=== PATIENT | female | born 1965 | race Caucasian/White ===

== ENCOUNTER 2021-02-08 10:11 | Emergency (ER) | payer OTHER, SELFPAY ==
[2021-02-08 10:19] VITALS: BP 144/82; PULSE 98; RESP 18; TEMP 36.9; O2SAT 99
[2021-02-08 10:58] VITALS: BP 147/84; PULSE 96; RESP 16; O2SAT 96
--- NOTE | 2021-02-08 11:19 | ED.GENADULT ---
HPI - General Adult General Chief complaint: Upper Respiratory Infection Stated complaint: Sinus pressure, ears pain, cough Time Seen by Provider: 02/08/21 10:59 Source: patient and RN notes reviewed Mode of arrival: ambulatory Limitations: no limitations History of Present Illness HPI narrative: Patient is a 55-year-old female who presents with upper respiratory symptoms that began patient went to urgent care over the weekend was given antibiotic after having negative Covid test patient is already vaccinated against Covid patient notes that she started with congestion and ear fullness sinus pressure patient had one episode of emesis over the weekend notes that she now has nonproductive cough patient has been taking the antibiotic but no other medications for her symptoms patient on arrival is in no distress and does not appear uncomfortable Related Data Allergies Allergy/AdvReac Type Severity Reaction Status Date / Time No Known Drug Allergies Allergy Unknown Verified 10/29/16 08:19 Review of Systems Review of Systems: All systems reviewed & are unremarkable except as noted in HPI and below PMFSH Past Medical History Medical History (Updated 02/08/21 @ 11:29 by Anders Ernst PA-C) Diabetes mellitus Social History Social History (Updated 02/08/21 @ 11:27 by Anders Ernst PA-C) Smoking status: Never smoker Exam Narrative: Exam Narrative: GENERAL: Well-appearing, well-nourished, and in no acute distress. HEAD: Normocephalic, atraumatic. EYES: PERRLA and EOMI. ENT: Nares clear, no rhinorrhea or epistaxis. Mucous membranes moist. Oropharynx without tonsillar hypertrophy exudate or other lesions. Bilateral TMs pearly pereira nonbulging NECK: Supple. No adenopathy or masses. CHEST: Clear to auscultation. No respiratory distress. No wheezes rales or rhonchi HEART: Regular rate and rhythm. No murmur heard. EXTREMITIES: Normal range of motion. No edema. SKIN: Warm, dry, no rash. NEURO: No focal deficits. Alert and oriented x3. Cranial nerves II through XII grossly intact PSYCH: Normal mood and affect. Course Course Emergency Course: Patient in the room in no distress will be treated with medications for her symptoms advised to follow-up with primary care is afebrile nontoxic-appearing no distress felt appropriate for outpatient reevaluation. Patient felt appropriate for outpatient reevaluation as noted patient advised to continue her antibiotics. Patient provided with reasons to return Vital Signs Vital signs: Vital Signs Temperature 98.4 F 02/08/21 10:19 Pulse Rate 98 02/08/21 10:19 Respiratory Rate 18 02/08/21 10:19 Blood Pressure 144/82 H 02/08/21 10:19 Pulse Oximetry 99 02/08/21 10:19 Temperature 98.4 F 02/08/21 10:19 Pulse Rate 96 02/08/21 10:58 Respiratory Rate 16 02/08/21 10:58 Blood Pressure 147/84 H 02/08/21 10:58 Pulse Oximetry 96 02/08/21 10:58 Medical Decision Making MDM Narrative Medical decision making narrative: Patient with upper respiratory infection normal vital signs ABCs intact felt appropriate for outpatient reevaluation Vital Signs Vital Signs: Vital Signs Temperature 98.4 F 02/08/21 10:19 Pulse Rate 98 02/08/21 10:19 Respiratory Rate 18 02/08/21 10:19 Blood Pressure 144/82 H 02/08/21 10:19 Pulse Oximetry 99 02/08/21 10:19 Temperature 98.4 F 02/08/21 10:19 Pulse Rate 96 02/08/21 10:58 Respiratory Rate 16 02/08/21 10:58 Blood Pressure 147/84 H 02/08/21 10:58 Pulse Oximetry 96 02/08/21 10:58 Discharge Plan Discharge Clinical Impression: Upper respiratory infection Patient Disposition: Home, Self-Care Condition: Stable Instructions: Antibiotic Form, Upper Respiratory Infection (DC) Additional Instructions: Follow up with your primary care provider within 1-2 days. Go to ER for shortness of breath, difficulty breathing, chest pain, fever/chills, weakness, nauseau/vomitting, etc. or an
[2021-02-08 11:40] VITALS: BP 140/72; PULSE 92; RESP 20; O2SAT 98
== END 2021-02-08 11:37 | disposition home or self-care (01) ==
PROVIDERS: Emergency Provider Emergency Medicine; PCP Physician Assistant
DX: J06.9 Acute upper respiratory infection, unspecified (principal); E11.9 Type 2 diabetes mellitus without complications
CPT/HCPCS: 99283

== ENCOUNTER 2025-07-02 09:46 | Emergency (ER) | payer OTHER, SELFPAY ==
[2025-07-02] VITALS (8 sets, daily range): BP systolic 159–172; BP diastolic 83–88; PULSE 79–86; RESP 15–27; TEMP 36.5–36.8; O2SAT 96–99
--- NOTE | ~2025-07-02 | XR_ITS ---
Examination: XR chest 2V Clinical History: chest pain, WEIRD ARM FEELING Comparison: 10/29/2016 Technique: PA and Lateral Findings: Cardiomediastinal silhouette normal size and configuration. Lungs clear. Mediastinal calcifications. No acute bony abnormality. IMPRESSION: 1. No acute cardiopulmonary findings. Reviewed, dictated and finalized at location [facility]
--- NOTE | 2025-07-02 09:46 | ECG_ITS ---
Test Date: 2025-07-02 09:52:23 Measurements Intervals Lesage Rate: 91 P: 35 DE: 138 QRS: -21 QRSD: 81 T: 58 QT: 356 QTc: 439 Interpretive Statements SINUS RHYTHM POOR R-WAVE PROGRESSION, CONSIDER PREVIOUS ANTERIOR INFARCTION ABNORMAL ECG No previous ECG available for comparison Electronically Signed On 07-02-2025 13:21:33 APPEALS OFFICER by Timmy Daly M.D.
[2025-07-02 10:07] LABS: Hematocrit 37.6 % (37.0-47.0); Hemoglobin 12.6 g/dL (12.0-15.0); Immature Granulocyte Percent A 0.3 % (0-0.5); Lymphocytes Absolute Auto 2.65 K/mm3 (0.9-3.2); Mean Corpuscular HGB Conc 33.5 g/dl (32-36); Mean Corpuscular Hemoglobin 30.1 pg (26-34); Mean Corpuscular Volume 89.7 fl (80-100); Nucleated Red Blood Cells Absolute Auto 0.000 K/mm3 (0.0-0.012); Nucleated Red Blood Cells Perc 0.0 % (0.0-0.2); Platelet Count Result 176 k/mm3 (150-375); Red Blood Count 4.19 M/mm3 (4.2-5.4); White Blood Count 6.8 K/mm3 (4.5-10.0)
[2025-07-02 10:19] LABS: INR 1.2; Partial Thromboplastin Time 25.9 Seconds (22.3-36.8); Prothrombin Time 14.8 Seconds (11.1-14.7)
[2025-07-02 10:25] LABS: Alanine Aminotransferase 30 U/L (6-35); Albumin Level 4.3 g/dL (3.5-5.1); Alkaline Phosphatase 90 U/L (38-126); Anion Gap 10 mmol/L (4-12); Aspartate Amino Transferase 33 U/L (14-36); Bilirubin,Total 0.5 mg/dL (0.2-1.3); Blood Urea Nitrogen 12 mg/dL (7-17); Calcium 9.4 mg/dL (8.4-10.2); Carbon Dioxide 28 mmol/L (22-30); Chloride 101 mmol/L (98-107); Estimated CRCL calculation 93 ml/min; Estimated Glomerular Filt Rate > 60; Glucose 152 mg/dL (65-110); Lipase 177 U/L (23-300); Potassium 3.6 mmol/L (3.4-5.0); Sodium 139 mmol/L (137-145); Total Protein 8.0 g/dL (6.3-8.2)
[2025-07-02 10:35] LABS: Troponin I < 0.012 ng/mL (0.000-0.034)
--- OUTSIDE RECORDS SUMMARY | 2025-07-02 11:02 | XMS_ITS | Encounter Summary ---
Author Organization [facility] Facility Care Team Providers Care Coat Cutter Name Role Phone ADAM Newsome Jr., Robert James Primary Care Provide r Timmy Munoz MD Unavailable [phone] Mickie Merritt MD Unavailable Castillo Carrasquillo DO Primary Care Provider + ADAM Newsome Jr., Robert James Unavailable ADAM Newsome Jr., Robert James Primary Care Provide r Encounter Details Date Type Department Care Team (Latest Contact Info) Description 06/10/2017 Orders Only [facility] CLINCONV ProviderTanvi MD [address] [place] [address] Social History Tobacco Use Types Packs/Day Years Used Date Smoking Tobacco: Never Assessed Comments Unknown Sex and Gender Information Value Date Recorded Sex Assigned at Not on file 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 us Historical Provider Final Res ult documented in this encounter Visit Diagnoses Not on filedocumented in this encounter Care Teams Coat Cutter Relationship Specialty Start Date End Date Castillo Newsome Jr., PA [address] [place] [address] PCP - General Physician Historiography Professor 01/19/19 01/28/23 Castillo Carrasquillo DO [address] [place] [address] PCP - General Family Medicine 01/29/23 01/29/23 Castillo Newsome Jr., PA [address] [place] [address] PCP - General Family Medicine 01/30/23 Timmy Munoz MD [address] [address] Consulting Physician Orthopedic Surgery 12/26/21 Mickei Merritt MD [address] [address] Consulting Physician Obstetrics and Gynecology 03/24/22 03/25/22 Castillo Newsome Jr., PA [address] [place] [address] Physician Historiography Professor Family Medicine 01/29/23 02/12/23 documented as of this encounter
--- OUTSIDE RECORDS SUMMARY | 2025-07-02 11:02 | XMS_ITS | Encounter Summary ---
Author Organization [facility] Facility Care Team Providers Care Plate Grainer Name Role Phone ADAM Newsome Jr., Robert James Primary Care Provide r Timmy Munoz MD Unavailable [phone] Mickie Merritt MD Unavailable [phone] Castillo Carrasquillo DO Primary Care Provider + ADAM Newsome Jr., Robert James Unavailable ADAM Newsome Jr., Robert James Primary Care Provide r Encounter Details Date Type Department Care Team (Latest Contact Info) Description 01/13/2016 Orders Only [facility] CLINCONV ProviderTanvi MD [address] [place] [address] Social History Tobacco Use Types Packs/Day Years Used Date Smoking Tobacco: Never Assessed Comments Unknown Sex and Gender Information Value Date Recorded Sex Assigned at Not on file 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 us Historical Provider Final Res ult documented in this encounter Visit Diagnoses Not on filedocumented in this encounter Care Teams Plate Grainer Relationship Specialty Start Date End Date Castillo Newsome Jr., PA [address] [place] [address] PCP - General Physician Meteorological Engineer 01/19/19 01/28/23 Castillo Carrasquillo DO [address] [place] [address] PCP - General Family Medicine 01/29/23 01/29/23 Castillo Newsome Jr., PA [address] [place] [address] PCP - General Family Medicine 01/30/23 Timmy Munoz MD [address] [address] Consulting Physician Orthopedic Surgery 12/26/21 Mickie Merritt MD [address] [address] Consulting Physician Obstetrics and Gynecology 03/24/22 03/25/22 Castillo Newsome Jr., PA [address] [place] [address] Physician Meteorological Engineer Family Medicine 01/29/23 02/12/23 documented as of this encounter
--- OUTSIDE RECORDS SUMMARY | 2025-07-02 11:02 | XMS_ITS | Encounter Summary ---
Author Organization [facility] Facility Care Team Providers Care Movie Projectionist Name Role Phone ADAM Newsome Jr., Robert James Primary Care Provide r Timmy Munoz MD Unavailable [phone] Mickie Merritt MD Unavailable Castillo Carrasquillo DO Primary Care Provider + ADAM Newsome Jr., Robert James Unavailable ADAM Newsome Jr., Robert James Primary Care Provide r Encounter Details Date Type Department Care Team (Latest Contact Info) Description 12/12/2015 Orders Only [facility] CLINCONV ProviderTanvi MD [address] [place] [address] Social History Tobacco Use Types Packs/Day Years Used Date Smoking Tobacco: Never Assessed Comments Unknown Sex and Gender Information Value Date Recorded Sex Assigned at Not on file Legal Sex Female 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 Gender Identity Female 02/12/2019 8:13 PM CDT [...] on filedocumented in this encounter Care Teams Movie Projectionist Relationship Specialty Start Date End Date Castillo Newsome Jr., PA [address] [place] [address] PCP - General Physician Icd 9 Coder 01/19/19 01/28/23 Castillo Carrasquillo DO [address] [place] [address] PCP - General Family Medicine 01/29/23 01/29/23 Castillo Newsome Jr., PA [address] [place] [address] PCP - General Family Medicine 01/30/23 Timmy Munoz MD [address] [address] Consulting Physician Orthopedic Surgery 12/26/21 Mickie Merritt MD [address] [address] Consulting Physician Obstetrics and Gynecology 03/24/22 03/25/22 Castillo Newsome Jr., PA [address] [place] [address] Physician Icd 9 Coder Family Medicine 01/29/23 02/12/23 documented as of this encounter
--- OUTSIDE RECORDS SUMMARY | 2025-07-02 11:02 | XMS_ITS | Patient Health Record ---
Author Organization [employer] [facility] [address] ([address]) Address [address] [place] [address] Care Team Providers Care Telephone Maintainer Name Role Phone Castillo Newsome PA-C Primary Care Provider Unavail able Radha Ernst Unavailable [phone] Vin Baugh MD Unavailable Unavailable Allergies No Known Allergies Reason For Referral No Information Medications Medication SIG (Take, Route, Frequency, Duration) Notes Start Date End Date Status CENTRUM SILVER WOMEN'S THERAPEUTIC MULTIPLE VITAMINS WITH MINERALS 1 TAB(S) ORALLY ONCE A DAY *Please review for potential replacement for e-prescription and drug interaction check* Active DULOXETINE 60 mg 1 cap(s) orally once a day Not-Taking VITAMIN B-100 COMPLEX TIMED RELEASE VITAMIN B COMPLEX 1 TAB(S) ORALLY ONCE A DAY *Please review for potential replacement for e-prescription and drug interaction check* Active GEMFIBROZIL 600 mg 1 tab(s) orally 2 times a day Not-Taking DULoxetine HCl 60 MG 1 cap(s) orally once a day Active TRIAMCINOLONE ACETONIDE NASAL 55 mcg/inh 2 spray(s) intranasally once a day; Duration: 90 days Not-Taking SIT (TRADITIONAL) VARIABLE PER SCHEDULE SC PER SCHEDULE *Please review for potential replacement for e-prescription and drug interaction check* Not-Taking CENTRUM MINIS ADULTS 50+ Therapeutic Multiple Vitamins with Minerals as directed orally once a day Not-Taking OPTICHAMBER PELON SPACER USE DIRECTED; Duration: 30 DAY(S) *Please review for potential replacement for e-prescription and drug interaction check* 2 Active AEROCHAMBER MDI SPACER - MOUTHPIECE (ADULT) N/A DIRECTED PO PER ASTHMA ACTION PLAN; Duration: 30 DAY(S) *Please review for potential replacement for e-prescription and drug interaction check* Active SYNTHROID 100 mcg (0.1 mg) 1 tab(s) orally once a day Not-Taking DIVALPROEX SODIUM 500 mg 1 tab(s) orally 3 times a day Not-Taking Gemfibrozil 600 MG 1 tab(s) orally 2 times a day Active METFORMIN 850 mg 1 tab(s) orally once a day (in the morning) Not-Taking Ezetimibe 10 MG 1 tab(s) orally once a day Active HYDROCHLOROTHIAZIDE 25 mg 1 tab(s) orally once a day Not-Taking Dulera 100-5 MCG/ACT 2 puff(s) inhaled 2 times a day; Duration: 90 days needs appointment Active EpiPen 2-Jarvis 0.3 MG/0.3ML as directed intramuscularly once; Duration: 30 days Active EZETIMIBE 10 mg 1 tab(s) orally once a day Not-Taking Cetirizine HCl 10 MG 1 tab(s) orally once a day Active POTASSIUM CHLORIDE 20 mEq 1 tab(s) orally 2 times a day Not-Taking AEROCHAMBER MDI SPACER - MOUTHPIECE (ADULT) N/A as directed PO Per asthma action plan; Duration: 30 days Active LANSOPRAZOLE 30 mg 1 cap(s) orally once a day Active Divalproex Sodium 500 MG 1 tab(s) orally 3 times a day Active Vitamin D3 125 MCG (5000 UT) 1 cap(s) orally once a day Active EPIPEN 2-JARVIS 0.3 mg as directed intramuscularly once; Duration: 30 days Active hydroCHLOROthiazide 25 MG 1 tab(s) orally once a day Not-Taking GLUCOSAMINE CHONDROITIN 20 MG-400 MG-500 MG-2 MG 3 CAP(S) ORALLY ONCE A DAY *Please review for potential replacement for e-prescription and drug interaction check* Active Levalbuterol Tartrate 45 MCG/ACT 2 puffs as needed Inhalation every 6 hrs; Duration: 90 days As needed Active Synthroid 100 MCG 1 tab(s) orally once a day Active CETIRIZINE HYDROCHLORIDE 10 mg 1 tab(s) orally once a day Active Lansoprazole 30 MG 1 cap(s) orally once a day Active Triamcinolone Acetonide 55 MCG/ACT 2 spray(s) intranasally once a day; Duration: 90 days Not-Taking NASAL WASHES N/A as directed intranasally as needed; Duration: 30 Active metFORMIN HCl 850 MG 1 tab(s) orally once a day (in the morning) Active VITAMIN D3 5000 intl units 1 cap(s) orally once a day Not-Taking Centrum Minis Adults 50+ THERAPEUTIC MULTIPLE VITAMINS WITH MINERALS DIRECTED ORALLY ONCE A DAY *Please review and pick correct strength-formul ation from [employer] options. If intended option is not shown, discontinue and re-order from Quick Search* Not-Taking PROAIR HFA 90 mcg/inh 2 puff(s) inhaled 4 times a day; Duration: 30 days Active Potassium Chloride ER 20 MEQ 1 tab(s) orally 2 times a day Not-Taking Trelegy Ellipta 200-62.5-25 MCG/ACT 1 puff Inhalation Once a day; Duration: 30 days Not-Taking DULERA 5 mcg-100 mcg/inh 2 puff(s) inhal ed 2 times a day; Duration: 90 days Not-Taking Immunizations Vaccine Route Administration Date Status Comme nts Hepatitis A Unknown 05/08/2000 Administered Portal Info rmation NOC Tdap Unknown 05/11/1992 Administered Portal Infor mation Influenza Unknown 06/07/2018 Administered Portal Infor mation Flucelvax Unknown 06/19/2019 Administered NOC Flucelevax Quadrivalent Unknown 06/08/2020 Administered Covid 19 (Pfizer) Unknown 08/05/2020 Administered Covid 19 (Pfizer) Unknown 08/26/2020 Administered Social History Tobacco Use: Social History Observation Description Date Details (start date - stop date) Never Smoker NA - NA Sex Assigned At : Social History Observation Description Sex Assigned At Female Tobacco Control (Standard) Question Answer Notes Tobacco use: Nonsmoker Problems Problem Type SNOMED Code ICD Code Onset Dates Problem Status W/U Status Risk Notes Problem Chronic allergic conjunctivitis (73379209) Other chronic allergic conjunctivitis (H10.45) Active confirmed Problem Acute upper respiratory infection (19533637) Acute upper respiratory infection, unspecified (J06.9) Active confirmed Problem Allergic rhinitis caused by pollen (disorder) (95366719) Allergic rhinitis due to pollen (J30.1) Active confirmed Problem Allergic rhinitis caused by animal hair and dander (801215797941727) Allergic rhinitis due to animal (cat) (dog) hair and dander (J30.81) Active confirmed Problem Allergic rhinitis (21791093) Other allergic rhinitis (J30.89) Active confirmed Problem Cough (13934709) Cough (R05) Active confirmed Problem Eruption of skin (258341874) Rash and other nonspecific skin eruption (R21) Active confirmed Problem Dermatographic urticaria (3646257) Dermatographic urticaria (L50.3) Active confirmed Problem Gastro-esophageal reflux disease without esophagitis (903464088) Gastro-esophageal reflux disease without esophagitis (K21.9) Active confirmed Problem Chronic cough (72641480) Chronic cough (R05.3) Active confirmed Vital Signs Oximetry 99 % 11/12/2024 Blood pressure diastolic 87 mm Hg 11/12/2024 Height 67 in 11/12/2024 Blood pressure systolic 156 mm Hg 11/12/2024 Weight 213.2 lbs 11/12/2024 BMI 33.39 kg/m2 11/12/2024 Encounters Encounter Location Date Provider Diagnosis [facility] [address] [place] [address] 11/12/2024 Radha Ernst Cough R05 ; Allergic rhinitis due to pollen J30.1 ; Allergic rhinitis due to animal (cat) (dog) hair and dander J30.81 ; Other allergic rhinitis J30.89 ; Gastro-esophageal reflux disease without esophagitis K21.9 ; Dermatographic urticaria L50.3 and Elevated blood-pressure reading, without diagnosis of hypertension R03.[address] [address] 05/18/2025 Radha Ernst Assessments Encounter Date Diagnosis (ICD Code) Assessment Notes Treatment Notes Treatment Clinical Notes Section Notes 11/12/2024 Allergic rhinitis due to pollen (ICD-10 - J30.1) Kimberly clearly suffers from atopic disease based upon our previous skin testing. She continues her aggressive medication regimen, nasal washes and allergy-specific avoidance measures and SCIT. Currently on MM q 4 weeks, was not due for dosing today. AIE on hand for dosing today. Given she has been on MM for 3 years without symptoms, will plan on trial off SCIT. I would have liked her to titrate meds before we stopped. - Off SCIT since 06/2023 and had been doing well until URI as stated above. 11/12/2024 Cough (ICD-10 - R05) Kimberly has a history of presumed asthma with historical seasonal cough each Fall. She was previously stepped down to QVAR which lead to increase in symptoms. Given she has moderate-persisten t symptoms, she was stepped-up to ICS/LABA again in 10/2019. Previously had been taking Dulera BID since that time with complete control of symptoms with MICHELLE use less than once per month. She is now on medium dose Dulera QD. Recommend stepping up to BID for future flares 11/12/2024 Allergic rhinitis due to animal (cat) (dog) hair and dander (ICD-10 - J30.81) Follow allergen avoidance, meds 11/12/2024 Other allergic rhinitis (ICD-10 - J30.89) Follow allergen avoidance, meds 11/12/2024 Gastro-esophageal reflux disease without esophagitis (ICD-10 - K21.9) Continue PPI, consider GI input. May be contributing to chronic cough. No recent symptoms so continue current regimen 11/12/2024 Dermatographic urticaria (ICD-10 - L50.3) Continue antihistamines and consider additional meds/work-up if not controlled. No interval symptoms 11/12/2024 Elevated blood-pressure reading, without diagnosis of hypertension (ICD-10 - R03.0) BP elevated today without symptoms of urgency or emergency. Continue serial checks and follow-up with PCP 11/12/2024 Other Plan Of Treatment No Information Insurance Providers Payer Name Payer Address Payer Phone Subscriber Number Group Number Insured Name Patient Relationship to Insured Coverage Start Date Coverage End Date [facility] [address] [address] [place], [place] [id number] [phone] [id number] Ezequiel Butler Spouse - patient is the spouse of the insured Medical (General) History Medical History History ICD Code Osteoarthritis Cough Vitamin D deficiency, unspecified Hypothyroidism, unspecified Essential (primary) hypertension Type 2 diabetes mellitus without complic ations Hyperlipidemia, unspecified Rash and other nonspecific skin eruption Other conjunctivitis Other seizures Gastro-esophageal reflux disease without esophagitis Other allergic rhinitis Surgical History Surgery Date(Month/Year) Appendectomy 12/17/1973 Nose Surgery 07/06/1982 01/22/1989 12/09/1989 Bi-lateral Plantar Fasciatis 04/19/2008 Uterine Ablation 05/19/2005 Tubes in Ears 05/19/2010 Removal of benign lump in L Breast 07/19
--- OUTSIDE RECORDS SUMMARY | 2025-07-02 11:02 | XMS_ITS | Encounter Summary ---
Author Organization [facility] Facility Care Team Providers Care Educational Guidance Counselor Name Role Phone ADAM Newsome Jr., Robert James Primary Care Provide r Timmy Munoz MD Unavailable [phone] Mickie Merritt MD Unavailable Castillo Carrasquillo DO Primary Care Provider + ADAM Newsome Jr., Robert James Unavailable ADAM Newsome Jr., Robert James Primary Care Provide r Encounter Details Date Type Department Care Team (Latest Contact Info) Description 06/20/2017 Orders Only [facility] CLINCONV ProviderTanvi MD [address] [place] [address] Social History Tobacco Use Types Packs/Day Years Used Date Smoking Tobacco: Never Assessed Comments Unknown Sex and Gender Information Value Date Recorded Sex Assigned at Not on file 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 us Historical Provider Final Res ult documented in this encounter Visit Diagnoses Not on filedocumented in this encounter Care Teams Educational Guidance Counselor Relationship Specialty Start Date End Date Castillo Newsome Jr., PA [address] [place] [address] PCP - General Physician Wick Tender 01/19/19 01/28/23 Castillo Carrasquillo DO [address] [place] [address] PCP - General Family Medicine 01/29/23 01/29/23 Castillo Newsome Jr., PA [address] [place] [address] PCP - General Family Medicine 01/30/23 Timmy Munoz MD [address] [address] Consulting Physician Orthopedic Surgery 12/26/21 Mickie Merritt MD [address] [address] Consulting Physician Obstetrics and Gynecology 03/24/22 03/25/22 Castillo Newsome Jr., PA [address] [place] [address] Physician Wick Tender Family Medicine 01/29/23 02/12/23 documented as of this encounter
--- OUTSIDE RECORDS SUMMARY | 2025-07-02 11:02 | XMS_ITS | Encounter Summary ---
Author Organization [facility] Facility Care Team Providers Care Cyber Threat Analyst Name Role Phone ADAM Newsome Jr., Robert James Primary Care Provide r Timmy Munoz MD Unavailable Mickie Merritt MD Unavailable Castillo Carrasquillo DO Primary Care Provider + ADAM Newsome Jr., Robert James Unavailable ADAM Newsome Jr., Robert James Primary Care Provide r Encounter Details Date Type Department Care Team (Latest Contact Info) Description 01/02/2016 Orders Only [facility] CLINCONV ProviderTanvi MD [address] [place] [address] Social History Tobacco Use Types Packs/Day Years Used Date Smoking Tobacco: Never Assessed Comments Unknown Sex and Gender Information Value Date Recorded Sex Assigned at Not on file Legal Sex Female 7:31 AM 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 us Historical Provider NURSING COMMUNICATION Fin al Result documented in this encounter Visit Diagnoses Not on filedocumented in this encounter Care Teams Cyber Threat Analyst Relationship Specialty Start Date End Date Castillo Newsome Jr., PA [address] [place] [address] PCP - General Physician Office Worker 01/19/19 01/28/23 Castillo Carrasquillo DO [address] [place] [address] PCP - General Family Medicine 01/29/23 01/29/23 Castillo Newsome Jr., PA [address] [place] [address] PCP - General Family Medicine 01/30/23 Timmy Munoz MD [address] [address] Consulting Physician Orthopedic Surgery 12/26/21 Mickie Merritt MD [address] [address] Consulting Physician Obstetrics and Gynecology 03/24/22 03/25/22 Castillo Newsome Jr. PA [address] [place] [address] Physician Office Worker Family Medicine 01/29/23 02/12/23 documented as of this encounter
--- OUTSIDE RECORDS SUMMARY | 2025-07-02 11:03 | XMS_ITS | Encounter Summary ---
Author Organization [facility] Facility Care Team Providers Care Driller Operator Name Role Phone ADAM Newsome Jr., Robert James Primary Care Provide r Timmy Munoz MD Unavailable [phone] Mickie Merritt MD Unavailable Castillo Carrasquillo DO Primary Care Provider + ADAM Newsome Jr., Robert James Unavailable ADAM Newsome Jr., Robert James Primary Care Provide r Encounter Details Date Type Department Care Team (Latest Contact Info) Description 10/29/2016 Orders Only [facility] CLINCONV ProviderTanvi MD [address] [place] [address] Social History Tobacco Use Types Packs/Day Years Used Date Smoking Tobacco: Never Assessed Comments Unknown Sex and Gender Information Value Date Recorded Sex Assigned at Not on file Legal Sex Female 7:31 AM IMPROVEMENT NURSE Gender Identity Female 02/12/2019 8:13 PM CDT Sexual Orientation Straight 02/12/2019 8: 13 PM CDT documented as of this encounter Plan of Treatment Not on file documented as of this encounter Procedures Procedure Name Priority Date/Time Associated Diagnosis Comments SCAN - LABS 06/10/2017 12:00 AM CDT CARDIOLOGY REPORT 06/10/2017 12: 00 AM CDT documented in this encounter Results * SCAN - LABS (06/10/2017 12:00 AM CDT) Narrative 06/10/2017 12:00 AM CDT Ordered by an unspecified provider. us Historical Provider Final Res ult * CARDIOLOGY REPORT (06/10/2017 12:00 AM CDT) Anatomical Region Laterality Modality Other Narrative 06/10/2017 12:00 AM CDT Ordered by an unspecified provider. us Historical Provider CV CARDIAC SERVICES PROCE ANUP Final Result documented in this encounter Visit Diagnoses Not on filedocumented in this encounter Care Teams Driller Operator Relationship Specialty Start Date End Date Castillo Newsome Jr., PA [address] [place] [address] PCP - General Physician Ethylene Plant Operator 01/19/19 01/28/23 Castillo Carrasquillo DO [address] [place] [address] PCP - General Family Medicine 01/29/23 01/29/23 Castillo Newsome Jr., PA [address] [place] [address] PCP - General Family Medicine 01/30/23 Timmy Munoz MD [address] [facility] [address] [address] Consulting Physician Orthopedic Surgery 12/26/21 Mickie Merritt MD [address] [facility] [address] [place] [address] Consulting Physician Obstetrics and Gynecology 03/24/22 03/25/22 Castillo Newsome Jr., PA [address] [place] [address] Physician Ethylene Plant Operator Family Medicine 01/29/23 02/12/23 documented as of this encounter
--- OUTSIDE RECORDS SUMMARY | 2025-07-02 11:03 | XMS_ITS | Encounter Summary ---
Author Organization [facility] Healthcare Address [address] [place] [address] Care Team Providers Care Textile Bag Sewer Name Role Phone Timmy Munoz MD Unavailable [phone] ADAM Newsome Jr., Castillo Suggs Primary Care Provide r Encounter Details Date Type Department Care Team (Late st Contact Info) Description 06/25/2025 Results Follow-Up [facility] Medical [facility] Primary Care [address] [phone] Castillo Newsome Jr., PA [address] [place] [address] Iron profile w/ IBC Social History Tobacco Use Types Packs/Day Years Used Date Smoking Tobacco: Never Smokeless Tobacco: Never Alcohol Use Standard Drinks/Week Comments Yes 0 (1 standard drink = 0.6 oz pur e alcohol) Rarely Humiliation, Afraid, Rape, and Kick questionnair e Answer Date Recorded Within the last year, have y ou been afraid of your partner or ex-partner? No 10/16/2022 Within the last year, have y ou been humiliated or emotionally abused in other ways by your partner or ex-partner? No Within the last year, have y ou been kicked, hit, slapped, or otherwise physically hurt by your partner or ex-partner? No 10/16/2022 Within the last year, have y ou been raped or forced to have any kind of sexual activity by your partner or ex-partner? No 10/16/2022 Social Connection and Isolation Panel Answer Date Recorded In a typical week, how many times do you talk on the phone with family, friends, or neighbors? Twice a week 10/16/19 How often do you get togethe r with friends or relatives? Twice a week 10/16/2022 How often do you attend chur ch or confucianism services? 1 to 4 times per year 10/16/2022 Do you belong to any clubs o r organizations such as advent groups, unions, fraternal or athletic groups, or school groups? Yes 10/16/2022 How often do you attend meet ings of the clubs or organizations you belong to? 1 to 4 times per year 10/16/2022 Are you , , di vorced, , never , or living with a partner? 10/16/2022 Overall Financial Resource Strain (CARDIA) Answe r Date Recorded How hard is it for you to pa y for the very basics like food, housing, medical care, and heating? Not hard at all 10/16/2022 PHQ-2 Answer Date Recorded PHQ-2 Total Score (If total score is 3 or more points, staff should administer the PHQ-9) 0 02/11/2025 [facility] - Occupational Stress Questionnaire Answer Date Recorded Do you feel stress - tense, restless, nervous, or anxious, or unable to sleep at night because your mind is troubled all the time - these days? Only a little 10/16/2022 Exercise Vital Sign Answer Date Recorde d On average, how many days pe r week do you engage in moderate to strenuous exercise (like a brisk walk)? 2 days 10/16/2022 On average, how many minutes do you engage in exercise at this level? 20 min 10/16/2022 Hunger Vital Sign Answer Date Recorded Within the past 12 months, y ou worried that your food would run out before you got the money to buy more. Never true 06/20/20 23 Within the past 12 months, t he food you bought just didn't last and you didn't have money to get more. Never true 06/20/2023 [facility] - Transportation Answer Date Re corded In the past 12 months, has l ack of transportation kept you from medical appointments or from getting medications? No 09/20 In the past 12 months, has l ack of transportation kept you from meetings, work, or from getting things needed for daily living? No 10/16/2022 Housing Stability Vital Sign Answer Vince e Recorded In the last 12 months, was t here a time when you were not able to pay the mortgage or rent on time? No 10/16/2022 Number of Places Lived in the Last Year Not on f ile 10/16/2022 In the last 12 months, was t here a time when you did not have a steady place to sleep or slept in a senior care (including now)? No 10/16/2022 PHQ-9 Answer Date Recorded PHQ-9 Total Score 0 10/20/2024 AUDIT-C Answer Date Recorded Q1: How often do you have a drink containing alc ohol? Never 06/01/2025 Average Number of Drinks Not on file 025 Frequency of Binge Drinking Not on file 05/19 Personal Safety Answer Date Recorded Have you ever been in or are you currently in a harmful physical or emotional relationship or is someone making you feel afraid or unsafe? Denies 04/09/2025 Education Answer Date Recorded What is the highest level of school you have completed or the highest degree you have received? 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 Author CCM Chronic Pain Care Plan Chronic Care Management No Susi Covington, LACE PINNER Note: Problem: Chronic Pain Goals: 1. Minimize further functional decline 2. Maximize quality of life 3. Control pain Strategies: - Activity/exercise program recommendation - Conservative stepwise pain medicine strategy with multi-disciplinary approach - Recommend healthy lifestyle strategies and compensatory methods as needed documented as of this encounter Visit Diagnoses Not on filedocumented in this encounter Care Teams Textile Bag Sewer Relationship Specialty Start Date End Date Castillo Newsome Jr., PA [address] [place] [address] PCP - General Family Medicine 01/30/23 Timmy Munoz MD [address] [address] Consulting Physician Orthopedic Surgery 12/26/21 documented as of this encounter
--- OUTSIDE RECORDS SUMMARY | 2025-07-02 11:03 | XMS_ITS | Encounter Summary ---
Author Organization [facility] Healthcare Address [address] [place] [address] Care Team Providers Care Assistant Hall Director Name Role Phone ADAM Newsome Jr., Castillo Suggs Primary Care Provide r Timmy Munoz MD Unavailable Mickie Merritt MD Unavailable Castillo Carrasquillo DO Primary Care Provider + ADAM Newsome Jr., Robert James Unavailable ADAM Newsome Jr., Robert James Primary Care Provide r Encounter Details Date Type Department Care Team (Late st Contact Info) Description 12/15/2021 Telephone [facility] Radiology [address] [place] [address] Estevan Reyes MD PhD [address] [place] [address] Social History Tobacco Use Types Packs/Day Years Used Date Smoking Tobacco: Never Smokeless Tobacco: Never Alcohol Use Standard Drinks/Week Comments Yes 0 (1 standard drink = 0.6 oz pur e alcohol) Rarely Humiliation, Afraid, Rape, and Kick questionnair e Answer Date Recorded Within the last year, have y ou been afraid of your partner or ex-partner? No 11/25/2020 Within the last year, have y ou been humiliated or emotionally abused in other ways by your partner or ex-partner? No Within the last year, have y ou been kicked, hit, slapped, or otherwise physically hurt by your partner or ex-partner? No 11/25/2020 Within the last year, have y ou been raped or forced to have any kind of sexual activity by your partner or ex-partner? No 11/25/2020 AUDIT-C Answer Date Recorded Q1: How often do you have a drink containing alc ohol? Monthly or less 10/09/2021 Q2: How many drinks containi ng alcohol do you have on a typical day when you are drinking? 1 or 2 10/09/2021 Q3: How often do you have si x or more drinks on one occasion? 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 documented as of this encounter Plan of Treatment Not on file documented as of this encounter Visit Diagnoses Not on filedocumented in this encounter Care Teams Assistant Hall Director Relationship Specialty Start Date End Date [place] [address] [address] PCP - General Physician Metal Reclamation Kettle Tender 01/19/19 01/28/23 [place] [address] [place] [address] PCP - General Family Medicine 01/29/23 01/29/23 Castillo Newsome Jr., PA [address] [place] [address] PCP - General Family Medicine 01/30/23 Timmy Munoz MD [address] [address] Consulting Physician Orthopedic Surgery 12/26/21 Mickie Merritt MD [address] [address] Consulting Physician Obstetrics and Gynecology 03/24/22 03/25/22 Castillo Newsome Jr., PA [address] [place] [address] Physician Metal Reclamation Kettle Tender Family Medicine 01/29/23 02/12/23 documented as of this encounter
--- OUTSIDE RECORDS SUMMARY | 2025-07-02 11:03 | XMS_ITS | Encounter Summary ---
Author Organization [facility] Facility Care Team Providers Care Golf Technician Name Role Phone ADAM Newsome Jr., Robert James Primary Care Provide r Timmy Munoz MD Unavailable [phone] Mickie Merritt MD Unavailable Castillo Carrasquillo DO Primary Care Provider + ADAM Newsome Jr., Robert James Unavailable ADAM Newsome Jr., Robert James Primary Care Provide r Encounter Details Date Type Department Care Team (Latest Contact Info) Description 10/16/2016 Orders Only [facility] CLINCONV ProviderTanvi MD [address] [place] [address] Social History Tobacco Use Types Packs/Day Years Used Date Smoking Tobacco: Never Assessed Comments Unknown Sex and Gender Information Value Date Recorded Sex Assigned at Not on file Legal Sex Female 7:31 AM PROMOTIONS OFFICER Gender Identity Female 02/12/2019 8:13 PM CDT Sexual Orientation Straight 02/12/2019 8: 13 PM CDT documented as of this encounter Plan of Treatment Not on file documented as of this encounter Procedures Procedure Name Priority Date/Time Associated Diagnosis Comments SCAN - LABS 10/16/2016 12:00 AM PROMOTIONS OFFICER documented in this encounter Results * SCAN - LABS (10/16/2016 12:00 AM PROMOTIONS OFFICER) Narrative 10/16/2016 12:00 AM PROMOTIONS OFFICER Ordered by an unspecified provider. us Historical Provider Final Res ult documented in this encounter Visit Diagnoses Not on filedocumented in this encounter Care Teams Golf Technician Relationship Specialty Start Date End Date Castillo Newsome Jr., PA [address] [place] [address] PCP - General Physician Resaw Carriage Operator 01/19/19 01/28/23 Castillo Carrasquillo DO [address] [place] [address] PCP - General Family Medicine 01/29/23 01/29/23 Castillo Newsome Jr., PA [address] [place] [address] PCP - General Family Medicine 01/30/23 Timmy Munoz MD [address] [address] Consulting Physician Orthopedic Surgery 12/26/21 Mickie Merritt MD [address] [address] Consulting Physician Obstetrics and Gynecology 03/24/22 03/25/22 Castillo Newsome Jr., PA [address] [place] [address] Physician Resaw Carriage Operator Family Medicine 01/29/23 02/12/23 documented as of this encounter
--- OUTSIDE RECORDS SUMMARY | 2025-07-02 11:03 | XMS_ITS | Encounter Summary ---
Author Organization [facility] Facility Care Team Providers Care Spike Machine Operator Name Role Phone ADAM Newsome Jr., Robert James Primary Care Provide r Timmy Munoz MD Unavailable [phone] Mickie Merritt MD Unavailable Castillo Carrasquillo DO Primary Care Provider + ADAM Newsome Jr., Robert James Unavailable ADAM Newsome Jr., Robert James Primary Care Provide r Encounter Details Date Type Department Care Team (Latest Contact Info) Description 02/28/2016 Orders Only [facility] CLINCONV ProviderTanvi MD [address] [place] [address] Social History Tobacco Use Types Packs/Day Years Used Date Smoking Tobacco: Never Assessed Comments Unknown Sex and Gender Information Value Date Recorded Sex Assigned at Not on file Legal Sex Female 7:31 AM DRAY DRIVER Gender Identity Female 02/12/2019 8:13 PM CDT Sexual Orientation Straight 02/12/2019 8: 13 PM CDT documented as of this encounter Plan of Treatment Not on file documented as of this encounter Procedures Procedure Name Priority Date/Time Associated Diagnosis Comments SCAN - LABS 02/28/2016 12:00 AM CDT documented in this encounter Results * SCAN - LABS (02/28/2016 12:00 AM CDT) Narrative 02/28/2016 12:00 AM CDT Ordered by an unspecified provider. us Historical Provider Final Res ult documented in this encounter Visit Diagnoses Not on filedocumented in this encounter Care Teams Spike Machine Operator Relationship Specialty Start Date End Date Castillo Newsome Jr., PA [address] [place] [address] PCP - General Physician Magisterial District Judge 01/19/19 01/28/23 Castillo Carrasquillo DO [address] [place] [address] PCP - General Family Medicine 01/29/23 01/29/23 Castillo Newsome Jr., PA [address] [place] [address] PCP - General Family Medicine 01/30/23 Timmy Munoz MD [address] [address] Consulting Physician Orthopedic Surgery 12/26/21 Mickie Merritt MD [address] [address] Consulting Physician Obstetrics and Gynecology 03/24/22 03/25/22 Castillo Newsome Jr., PA [address] [place] [address] Physician Magisterial District Judge Family Medicine 01/29/23 02/12/23 documented as of this encounter
--- OUTSIDE RECORDS SUMMARY | 2025-07-02 11:03 | XMS_ITS | Encounter Summary ---
Author Organization [facility] Facility Care Team Providers Care Application Administrator Name Role Phone ADAM Newsome Jr., Robert James Primary Care Provide r Timmy Munoz MD Unavailable [phone] Mickie Merritt MD Unavailable Castillo Carrasquillo DO Primary Care Provider + ADAM Newsome Jr., Robert James Unavailable [phone] ADAM Newsome Jr., Robert James Primary Care Provide r Encounter Details Date Type Department Care Team (Latest Contact Info) Description 10/15/2016 Orders Only [facility] CLINCONV ProviderTanvi MD [address] [place] [address] Social History Tobacco Use Types Packs/Day Years Used Date Smoking Tobacco: Never Assessed Comments Unknown Sex and Gender Information Value Date Recorded Sex Assigned at Not on file Legal Sex Female 7:31 AM RADIO MAINTAINER Gender Identity Female 02/12/2019 8:13 PM CDT Sexual Orientation Straight 02/12/2019 8: 13 PM CDT documented as of this encounter Plan of Treatment Not on file documented as of this encounter Procedures Procedure Name Priority Date/Time Associated Diagnosis Comments SCAN - LABS 10/18/2016 12:00 AM RADIO MAINTAINER documented in this encounter Results * SCAN - LABS (10/18/2016 12:00 AM RADIO MAINTAINER) Narrative 10/18/2016 12:00 AM RADIO MAINTAINER Ordered by an unspecified provider. us Historical Provider Final Res ult documented in this encounter Visit Diagnoses Not on filedocumented in this encounter Care Teams Application Administrator Relationship Specialty Start Date End Date Castillo Newsome Jr., PA [address] [place] [address] PCP - General Physician Director Of Accounts Payable 01/19/19 01/28/23 Castillo Carrasquillo DO [address] [place] [address] PCP - General Family Medicine 01/29/23 01/29/23 Castillo Newsome Jr., PA [address] [place] [address] PCP - General Family Medicine 01/30/23 Timmy Munoz MD [address] [address] Consulting Physician Orthopedic Surgery 12/26/21 Mickie Merritt MD [address] [address] Consulting Physician Obstetrics and Gynecology 03/24/22 03/25/22 Castillo Newsome Jr., PA [address] [place] [address] Physician Director Of Accounts Payable Family Medicine 01/29/23 02/12/23 documented as of this encounter
--- OUTSIDE RECORDS SUMMARY | 2025-07-02 11:03 | XMS_ITS | Encounter Summary ---
Author Organization [facility] Facility Care Team Providers Care Workers Compensation Specialist Name Role Phone ADAM Newsome Jr., Robert James Primary Care Provide r Timmy Munoz MD Unavailable [phone] Mickie Merritt MD Unavailable Castillo Carrasquillo DO Primary Care Provider + ADAM Newsome Jr., Robert James Unavailable ADAM Newsome Jr., Robert James Primary Care Provide r Encounter Details Date Type Department Care Team (Latest Contact Info) Description 05/05/2017 Orders Only [facility] CLINCONV ProviderTanvi MD [address] [place] [address] Social History Tobacco Use Types Packs/Day Years Used Date Smoking Tobacco: Never Assessed Comments Unknown Sex and Gender Information Value Date Recorded Sex Assigned at Not on file Legal Sex Female 7:31 AM CUSTOMER PROGRAM MANAGER Gender Identity Female 02/12/2019 8:13 PM CDT Sexual Orientation Straight 02/12/2019 8: 13 PM CDT documented as of this encounter Plan of Treatment Not on file documented as of this encounter Procedures Procedure Name Priority Date/Time Associated Diagnosis Comments SCAN - LABS 05/30/2017 12:00 AM CDT documented in this encounter Results * SCAN - LABS (05/30/2017 12:00 AM CDT) Narrative 05/30/2017 12:00 AM CDT Ordered by an unspecified provider. us Historical Provider Final Res ult documented in this encounter Visit Diagnoses Not on filedocumented in this encounter Care Teams Workers Compensation Specialist Relationship Specialty Start Date End Date Castillo Newsome Jr., PA [address] [place] [address] PCP - General Physician Building Construction Contractor 01/19/19 01/28/23 Castillo Carrasquillo DO [address] [place] [address] PCP - General Family Medicine 01/29/23 01/29/23 Castillo Newsome Jr., PA [address] [place] [address] PCP - General Family Medicine 01/30/23 Timmy Munoz MD [address] [address] Consulting Physician Orthopedic Surgery 12/26/21 Mickie Merritt MD [address] [address] Consulting Physician Obstetrics and Gynecology 03/24/22 03/25/22 Castillo Newsome Jr., PA [address] [place] [address] Physician Building Construction Contractor Family Medicine 01/29/23 02/12/23 documented as of this encounter
--- OUTSIDE RECORDS SUMMARY | 2025-07-02 11:03 | XMS_ITS | Clinical Summary ---
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 Name Role Phone Timmy Munoz MD Unavailable [phone] ADAM Newsome Jr., Castillo Suggs Primary Care Provide r Allergies Active Allergy Reactions Criticality Noted Date Comments Latex Unknown 01/13/2019 Medications cholecalciferol (VITAMIN D-3) 5,000 unit capsule 1 capsule (5,000 Units total) Active multivit-min/fe rrous fumarate (MULTI VITAMIN ORAL) Take by mouth Active ONETOUCH DELICA PLUS LANCET 30 gauge misc USE LANCETS TWICE A DAY DIRECTED 200 each 3 9 Active ONETOUCH ULTRA BLUE TEST STRIP strip USE TWICE A DAY 300 each 3 9 Active PROAIR HFA 90 mcg/actuation inhaler Inhale 2 puffs every 4 (four) hours as needed 9 Active ProChamber spacer U UTD 0 Active cetirizine (ZyrTEC) 10 mg tablet Take 1 tablet (10 mg total) by mouth daily Active ascorbic acid (VITAMIN C) 500 mg tablet,chewable 9 Active vitamin B complex (SUPER B-50 COMPLEX ORAL) 1 Active Compact Space Chamber-Lrg Mask spacer 2 Active glucosamine-cho ndroitin (glucosamine-ch ondroit-vit C-Mn) 500-400 mg capsule daily Active hydrocortisone (WESTCORT) 0.2 % cream APPLY TOPICALLY TWICE A DAY 45 g 14 4 Active Dulera 100-5 mcg/actuation inhaler 4 Active levothyroxine (SYNTHROID) 100 mcg tablet TAKE 1 TABLET DAILY 90 tablet 3 5 Active nystatin-triamc inolone ointmentIndicat ions:cutaneous candidiasis Apply topically 2 (two) times a day Ok to separate tubes 30 g 1 5 Active glipiZIDE (GLUCOTROL) 10 mg tabletIndicatio ns:type 2 diabetes mellitus Take 1 tablet (10 mg total) by mouth 2 (two) times a day before breakfast and lunch 180 tablet 1 5 026 Active ferrous sulfate 325 mg (65 mg of elemental iron) tabletIndicatio ns:Iron Deficiency Anemia Take 1 tablet (325 mg total) by mouth daily with breakfast 90 tablet 1 5 026 Active lansoprazole (PREVACID) 30 mg capsule Take 1 capsule (30 mg total) by mouth 2 (two) times a day 180 capsule [address] (CYMBALTA) 60 mg capsuleIndicati ons:Diabetic Peripheral Neuropathy,Neur opathic Pain Take 1 capsule (60 mg total) by mouth daily 90 capsule 3 5 Active metFORMIN (GLUCOPHAGE) 850 mg tablet TAKE 1 TABLET TWICE A DAY WITH MEALS 180 tablet 3 5 Active divalproex ER (DEPAKOTE ER) 500 mg 24 hr tabletIndicatio ns: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) Take 1 tablet (500 mg total) by mouth 2 (two) times a day 180 tablet 3 5 026 Active ezetimibe (ZETIA) 10 mg tablet TAKE 1 TABLET DAILY 90 tablet 3 5 Active gemfibroziL (LOPID) 600 mg tablet TAKE ONE-HALF (1/2) TABLET TWICE A DAY 90 tablet 3 5 Active LORazepam (ATIVAN) 0.5 mg tabletIndicatio ns:anxiety Take 1 tablet (0.5 mg total) by mouth as needed for anxiety Take 1 tablet by mouth 60 minutes prior to MRI scan; may repeat once immediately prior to the scan for anxiety 2 tablet 5 Active semaglutide (RYBELSUS) 3 mg tabletIndicatio ns:Type 2 diabetes mellitus without complication, without long-term current use of insulin (HCC) Take 1 tablet (3 mg total) by mouth coal carrier before breakfast 30 tablet 5 Active lidocaine (LIDODERM) 5 %Indications:Pa in Place 1 patch on the skin daily for 12 hours Use patch for 12 hours on, 12 hours off. Discard after each use 7 patch 5 025 Discontin ued(Patie nt Reported) semaglutide (RYBELSUS) 3 mg tabletIndicatio ns:Type 2 diabetes mellitus without complication, without long-term current use of insulin (HCC) Take 1 tablet (3 mg total) by mouth coal carrier before breakfast 30 tablet 5 025 Discontin ued(Reord er) semaglutide (RYBELSUS) 3 mg tabletIndicatio ns:Type 2 diabetes mellitus without complication, without long-term current use of insulin (HCC) Take 1 tablet (3 mg total) by mouth coal carrier before breakfast 30 tablet 5 025 Discontin ued(Reord er) Hospital, Clinic, or Other Facility Administered Medication Ordered Dose Route Frequency Start Date End Date Status lidocaine (XYLOCAINE) 10 mg/mL (1 %) injection 1 mLIndications:Admi nistration of Local Anesthesia 1 mL One-Time Injection 06/24/2025 06/24/2025 Ended methylPREDNISolone acetate (DEPO-medrol) injection 40 mgIndications:Trig cristian index finger of right hand 40 mg intra-artic One-Time Injection 06/24/2025 06/24/2025 Ended Active Problems Problem Noted Date Diagnosed Date Acute upper respiratory infection 02/11/2025 Allergic rhinitis 02/11/2025 Allergic rhinitis due to animal hair and dander 02/11/2025 Allergic rhinitis due to pollen 02/11/2025 Chronic allergic conjunctivitis 02/11/2025 Chronic cough 02/11/2025 Dermatographic urticaria 02/11/2025 Rash 02/11/2025 Anemia 12/21/2024 BRBPR (bright red blood per rectum) 12/21/2024 Type 2 diabetes mellitus with hyperglycemia 07/19 Diabetic neuropathy, type II diabetes mellitus 1 10/05/2023 Neuropathy 05/07/2023 S/P arthroscopy of left shoulder 02/09/2022 Moderate persistent asthma without complication 01/22/2022 Primary osteoarthritis of left shoulder 12/08/19 Overview (12/07/2021): Added automatically from request for surgery [id number] Essential hypertension, benign 10/10/2021 Assessment & Plan (10/09/2022 9:01 AM QUALITY IMPROVEMENT ANALYST): Blood pressure is well controlled. Continue low-salt diet. Continue hydrochlorothiazide. Chemistries in July looks good. Chronic left shoulder pain 04/03/2019 Type 2 diabetes mellitus wit hout complication, without long-term current use of insulin 02/12/2019 Pure hypercholesterolemia 02/12/2019 Obesity (BMI 30-39.9) 02/12/2019 Assessment & Plan (10/09/2022 9:01 AM QUALITY IMPROVEMENT ANALYST): Discussed cutting back on the calories and start doing more exercise and losing weight. 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 Her DME supplier is [facility]. She will follow up here in 1 year. Assessment & Plan (10/21/2024 8:11 AM QUALITY IMPROVEMENT ANALYST): The patient continues to benefit from CPAP at 7 cm water pressure for ongoing symptoms of CHRISTOPHER. Her DME supplier is [facility]. I will order a new CPAP unit for her with heated humidifier and she will follow up here in 1 year. Assessment & Plan (10/18/2023 9:45 AM QUALITY IMPROVEMENT ANALYST): Patient continue to wear CPAP at 7 cm water pressure while sleeping. Her DME is [facility]. Assessment & Plan (10/09/2022 11:16 AM QUALITY IMPROVEMENT ANALYST): Patient feels that the pressure may be too high, I have decreased the pressure to 7 cm water pressure. I instructed the patient to call into the office if the pressure is still needs to be adjusted. DME [facility]. I have also ordered a full set of supplies Assessment & Plan (08/21/2021 8:53 AM QUALITY IMPROVEMENT ANALYST): Due to the patient stating that there may be too much pressure in her CPAP, I have decreased the pressure to 8 cm water pressure and then sent an order for full set of supplies. DME company [facility]. Patient is benefitting from CPAP therapy. Chronic eustachian tube dysfunction 01/02/2016 YENNIFER (juvenile myoclonic epilepsy) 11/07/2015 Resolved Problems Problem Noted Date Diagnosed Date Resolved Date Neuropathic pain 05/07/2023 08/04/2024 Abnormal liver function tests 04/10/2023 08/04/2024 Hypertriglyceridemia 10/09/2022 024 Mixed hyperlipidemia 10/09/2022 024 Assessment & Plan (10/09/2022 9:01 AM QUALITY IMPROVEMENT ANALYST): Recent lipid panel looks good. Continue fenofibrate and Zetia which she is tolerating well. Again discussed heart healthy diet. I will repeat her Chem 12 and lipids prior to next appointment. Aftercare following surgery 02/09/2022 08/04/2024 COVID-19 virus infection 01/22/2022 Assessment & Plan (01/22/2022 3:47 PM CDT): - steroid dose pack - pt high risk with asthma but has missed window for ab treatment - continue Asthma medications - robitusin AC for cough - f/u if sx worsen Bursitis of left shoulder 12/07/2021 Overview (12/07/2021): Added automatically from request for surgery [id number] Adhesive capsulitis of left shoulder 12/07/2021 08/04/2024 Overview (12/07/2021): Added automatically from request for surgery [id number] History of colonic polyps 09/07/2021 Overview (09/07/2021): Added automatically from request for surgery [id number] Metabolic syndrome 09/04/2019 1 Dyslipidemia 02/13/2019 10/10/2021 Essential hypertension 02/12/201910/10 History of seizure 02/12/2019 5 Abnormal electrocardiogram 03/07/2016 1 10/05/2023 Dyspnea on exertion 03/07/2016 08/08/20 Overview (05/27/2019): Resolved Other specified abnormal fin dings of blood chemistry 03/07/2016 08/08/2021 Diabetes mellitus type 2, un controlled ([facility]) 12/20/2015 08/08/2021 Encounter for therapeutic drug monitoring 11/07/2015 08/08/2021 Hypothyroidism 11/07/2015 08/08/2021 Encounters Date Type Department Care Team Description 06/25/2025 Results Follow-Up [facility] [address] [place] [address] [address] [place] [phone] Castillo Newsome Jr., PA Iron profile w/ IBC 06/24/2025 3:05 PM QUALITY IMPROVEMENT ANALYST Lab [facility] [address] [place] [id number] Other iron deficiency anemia 06/24/2025 1:30 PM QUALITY IMPROVEMENT ANALYST Office Visit [facility] Medical [facility] Hand Surgery [address] [phone] Karen Cleveland MD Bilateral hand pain (Primary Dx); Trigger index finger of right hand; Dupuytren contracture 06/24/2025 12:51 PM QUALITY IMPROVEMENT ANALYST - 06/24/2025 11:59 PM QUALITY IMPROVEMENT ANALYST Hospital Encounter [facility] Diag Imaging [address] [place], [place] [phone] Bilateral hand pain Discharge Disposition: Discharge to home or self care 06/24/2025 Telephone [facility] Primary Care [address] [place] [address] [place] [phone] Castillo Newsome Jr., PA 06/01/2025 7:15 AM CDT Office Visit [facility] Primary Care [address] [place] [address] [place] [phone] Castillo Newsome Jr. 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; Gastroesophageal reflux disease without esophagitis; History of seizure; Dupuytren's contracture of both hands; Class 1 obesity due to excess calories without serious comorbidity with body mass index (BMI) of 31.0 to 31.9 in adult 05/24/2025 4:30 PM CDT Telemedicine [facility] Epilepsy [address] [facility] 6[address] [place] [address] [place] [phone] Estevan Reyes MD PhD 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) (Primary Dx); Seizures (HCC) 05/13/2025 4:45 PM CDT Lab [facility] Lab [address] [place] [phone] Type 2 diabetes mellitus without complication, without long-term current use of insulin (HCC) 04/09/2025 5:11 PM CDT - 04/09/2025 6:24 PM CDT Emergency [facility] Emergency Department [address] [place] [id number] Fall, initial encounter (Primary Dx); Head injury, initial encounter Discharge Disposition: Discharge to home or self care from Last 3 Months Immunizations Immunization Administration Dates Next Due Hep A, Unspecified 05/08/2000 Influenza, Quadrivalent, Caryn l Culture-based MDCK, Antibiotic Free, Intramuscular 06/08/2020,06/19/2019 Influenza, Quadrivalent, Spl it, Preservative Free, Intramuscular 05/18/2023 Influenza, Trivalent, IM (MDV) 05/15/2013 Influenza, Trivalent, Recomb inant, Egg Free, Preservative Free, Antibiotic Free, IM (FLUBLOK) 05/23/2025,05/16/2024 Influenza, Unspecified 05/18/2023,2021,05/30/2021,05/31,06/07/2018 Pfizer SARS-CoV-2 Monovalent Vaccination (12+ Yrs) PURPLE 05/26/2021,09/05/2020,08/26/2020,08/05 Pneumococcal Conjugate Pcv20 05/18/2023 RSV Vaccine, Pref, Recombina nt, Subunit, Adjuvanted, PF, IM (Arexvy) 05/16/2024 Tdap 02/13/2023,05/11/1992 ZOSTER Recombinant 01/29/2020,09/12/2019 Surgical History Surgery Date Site/Laterality Comments NASAL FRACTURE SURGERY SECTION x2 MYRINGOTOMY W/ TUBES 10/17/2012 - 11/16/2012 PLANTAR FASCIA SURGERY 12/17/2008 - 01/16/2009 HYSTEROSCOPY W/ ENDOMETRIAL ABLATION 08/19/2005 - 08/18/2006 Novasure COMBINED HYSTEROSCOPY DIAGNOSTIC / D&C 08/19/2005 - 08/18/2006 uterine perforation; EM ablation not performed GANGLION CYST EXCISION 08/19/2004 - 09/18/2004 APPENDECTOMY FLUORO GUIDED INJECTION SHOULDER RIGHT 07/31/2017 Right FLUORO GUIDED INJECTION SHOULDER RIGHT 10/16/2017 Right FLUORO GUIDED INJECTION SHOULDER RIGHT 06/06/2018 Right BREAST BIOPSY Left benign FLUORO GUIDED INJECTION SHOULDER LEFT 11/02/2020 Left FLUORO GUIDED INJECTION SHOULDER LEFT 07/07/2021 Left COLONOSCOPY 08/19/2021 - 08/18/2022 due 2026 SHOULDER SURGERY 12/26/2021 Left FRACTURE SURGERY 1982 ABLATION Medical History Medical History Date Comments Asthma GERD (gastroesophageal reflux disease) Abnormal EKG Hypothyroidism HLD (hyperlipidemia) Chest pain Diabetes mellitus, type 2 PONV (postoperative nausea and vomiting) Colon polyp Epilepsy (HCC) Juvenile myoclon ic H/O colonoscopy 10/10/2021 due 2027 Sleep apnea CPAP Motion sickness Allergic rhinitis Obesity Menopause ovarian failure Vaginal atrophy Covid 01/2022 Peripheral neuropathy Arthritis Dysphagia Hemorrhoids Food intolerance dairy Family History Medical History Relation Name Comments Hearing loss Brother 1 Terrance Salgins Hearing loss Brother 2 Kenny Joseph Heart disease Brother 2 Kenny Salgins Hypertension Brother 2 Kenny Salgins COPD Father Basil (78 yr) Colon polyps Father Ray (78 yr) Hearing loss Father Ray (78 yr) Breast cancer Father's Sister Diabetes Maternal Grandmother Patti Breast cancer Mother Freya Bullous pemphigoid Mother Freya Cancer Mother Freya Diabetes Mother Freya Epilepsy Mother Freya Hearing loss Mother Freya Hypertension Mother Freya Seizures Mother Freya Stroke Mother Freya Colon cancer Mother's Brother Epilepsy Other Maternal Cousin s Cervical cancer Paternal Grandmother Learning disabilities Sister Carmen Psoriasis Son 1 Win seasonal allergies Son 1 Win Migraines Son 2 Brando seasonal allergies Son 2 Brando Clotting disorder Neg Hx Ovarian cancer Neg Hx Thrombophilia Neg Hx Uterine cancer Neg Hx Relation Name Status Comments Brother 1 Terrance Salgins Alive Brother 2 Kenny Salgins Alive Father Basil (78 yr) (Age 76) Father's Sister Maternal Grandfather Maternal Grandmother Patti Mother Freya Alive Mother's Brother Mother's Sister Other Paternal Grandfather Paternal Grandmother Sister Carmen Alive Son 1 Win Alive Son 2 Brando Alive Social History Tobacco Use Types Packs/Day Years Used Date Smoking Tobacco: Never Smokeless Tobacco: Never Tobacco Cessation:Counseling Given: Not Answered Alcohol Use Standard Drinks/Week Comments Yes 0 [...] often do you attend chur ch or nondenominational services? 1 to 4 times per year 10/16/2022 Do you belong to any clubs o r organizations such as sikhism groups, unions, fraternal or athletic groups, or [...] staff should administer the PHQ-9) 0 02/11/2025 [facility] Occupat ional [facility] - Occupational Stress Questionnaire Answer Date [...] place to sleep or slept in a [place] health care facility (including now)? 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 file Not on file Not on f ile [employer] [place] Not on file Not on file Not on file Obstetrics History Para Term AB IAB SAB Ectopic Multiple Livin g Live Births 2 2 2 2 2 Date Outcome GA Total Labor Labor/2nd/3rd Weight Sex Type Anes PTL Bianca A1 A5 Name Clin 1988 Term 4.309 kg (9 lb 8 oz) M CS-Un spec Living Win 1989 Term 3.374 kg (7 lb 7 oz) M CS-Un spec Living Silvana s Last Filed Vital Signs Vital Sign Reading Time Taken Comments Blood Pressure 118/70 06/01/2025 7:08 AM CDT Pulse 106 06/01/2025 7:08 AM CDT Temperature 36.3 C (97.3 F) 06/01/2025 7:08 AM CDT Respiratory Rate 16 06/01/2025 7:08 AM CDT Oxygen Saturation 95% 06/01/2025 7:08 AM CDT Inhaled Oxygen Concentration - - Weight 90.7 kg (200 lb) 06/01/2025 7:08 AM CDT Height 170.2 cm (5' 7) 06/01/2025 7:08 AM CDT Body Mass Index 31.32 06/01/2025 7:08 AM CDT Plan of Treatment Health Maintenance Due Date Last Done Comments Foot Exam 08/08/2021 08/08/2020 Cervical Cancer Screening 10/20/20252024, 10/20/2024, 10/16/2023, Additional history exists Hemoglobin A1C 11/10/2025 05/13/2025, 0608/2024, 08/01/2024, Additional history exists Breast Cancer Screening-Mammogram 01/26/2026 01/26/2025, 02/11/2024, 01/29/2023, Additional history exists Lipid Panel 02/06/2026 02/06/2025, 07/19, 09/21/2023, Additional history exists eGFR 02/06/2026 02/06/2025, 05/0 09/2024, 08/01/2024, Additional history exists Albumin Creatinine Ratio, Urine 02/11/2026 02/11/2025, 08/08/2024, 04/06/2023, Additional history exists Depression Screening 02/11/2026 02/11/2025, 10/20/2024, 10/20/2024, Additional history exists Regular Well Visit/Exam 18-64 02/11/2026, 10/20/2024, 10/16/2023, Additional history exists Dilated Eye Exam 03/29/2026 03/29/2025, 07/2025, 10/05/2024, Additional history exists Colon Cancer Screening-Colonoscopy 12/26/2027 12/25/2024, 10/09/2021, 06/10/2015, Additional history exists DTaP/Tdap/Td Vaccine (3 - Td or Tdap) 02/13/2033 02/13/2023, 05/11/1992 Zoster Vaccine Completed 01/29/2020, 09/12/2019 Hepatitis B Screening Completed 12/26/2021 Hepatitis C Screening Completed 12/26/2021 , 12/26/2021, 08/08/2019 Pneumococcal vaccine <65 Completed 05/18/2023 Colon Cancer Screening-CT Colonography Discontinued 12/25/2024, 10/09/2021, 06/10/2015, Additional history exists Colon Cancer Screening-DNA Stool Discontinued 12/25/2024, 10/09/2021, 06/10/2015, Additional history exists Colon Cancer Screening-FIT Discontinued 12/25, 10/09/2021, 06/10/2015, Additional history exists Colon Cancer Screening-Sigmoidoscopy Discontinued 12/25/2024, 10/09/2021, 06/10/2015, Additional history exists Covid-19 Vaccine Completed 05/23/2025, , 05/04/2022, Additional history exists Influenza Vaccine Completed 05/23/2025, , 05/18/2023, Additional history exists Goals Goal Patient Goal Type Associated Problems Recent Progress Patient-Stated? Author CCM Chronic Pain Care Plan Chronic Care Management Susi Carreon, DIE ENGRAVING SUPERVISOR Note: Problem: Chronic Pain Goals: 1. Minimize further functional decline 2. Maximize quality of life 3. Control pain Strategies: - Activity/exercise program recommendation - Conservative stepwise pain medicine strategy with multi-disciplinary approach - Recommend healthy lifestyle strategies and compensatory methods as needed Medical Devices Implanted Type Area Communications Representative Device Identifier Shelf Expiration Date Model / Serial / Lot Breast Marker Breast Procedures Procedure Name Priority Date/Time Associated Diagnosis Comments IRON PROFILE W/ IBC Routine 06/24/2025 3 :08 PM QUALITY IMPROVEMENT ANALYST Other iron deficiency anemia [place] INJECTION 1 TENDON SHEATH/LIGAMENT APONEUROSIS Routine 06/24/2025 1:30 PM QUALITY IMPROVEMENT ANALYST Trigger index finger of right hand XR HAND RIGHT 3 OR MORE VIEWS Schedule Routine, Read Routine (OP Routine) 06/24/2025 12:56 PM QUALITY IMPROVEMENT ANALYST Bilateral hand pain XR HAND LEFT 3 OR MORE VIEWS Schedule Routine, Read Routine (OP Routine) 06/24/2025 12:56 PM QUALITY IMPROVEMENT ANALYST Bilateral hand pain HEMOGLOBIN A1C Routine 05/13/2025 4:55 PM CDT Type 2 diabetes mellitus without complication, without long-term current use of insulin (HCC) CT FACIAL BONES WO CONTRAST ED 04/09/2025 4:[address] CERVICAL SPINE WO CONTRAST ED 04/09/2025 4:[address] HEAD WO CONTRAST ED 04/09/2025 4 :14 PM CDT POCT GLUCOSE DEVICE Routine 04/09/2025 3 :38 PM CDT DIABETIC EYE EXAM Routine 03/29/2025 11: 01 AM CDT ALBUMIN CREATININE RATIO, URINE Routine 02/11/2025 10:27 AM CDT Type 2 diabetes mellitus without complication, without long-term current use of insulin (HCC) EGFR Routine 02/06/2025 11:37 AM CDT Essential hypertension, benign Mixed hyperlipidemia Obesity (BMI 30-39.9) LIPID PANEL Routine 02/06/2025 11:37 AM CDT Essential hypertension, benign Mixed hyperlipidemia Obesity (BMI 30-39.9) SCREENING MAMMOGRAM BILATERAL W RENALDO Schedule Routine, Read Routine (OP Routine) 01/26/2025 7:30 AM CDT Screening mammogram, encounter for COLONOSCOPY 12/25/2024 1:32 PM CDT HIGH RISK HPV DNA DETECTION WITH GENOTYPING Routine 10/20/2024 12:30 PM QUALITY IMPROVEMENT ANALYST Well woman exam HEPATITIS PANEL, ACUTE Routine 12/26/2021 1:11 PM CDT from Last 3 Months or Most Recently Relevant to Health Maintenance Results * (ABNORMAL) Iron profile w/ IBC (06/24/2025 3:08 PM QUALITY IMPROVEMENT ANALYST) Iron 48 35 - 145 mcg/dL Comment:Testing performed by : [address] [address] TIBC 399 250 - 400 mcg/dL HARISH MORRIS Comment:Testing performed by : [address] [address] Transferrin saturation 12(L) 20 - 50 % HARISH Comment:Testing performed by : [address] [address] Blood 06/24/2025 3:08 PM QUALITY IMPROVEMENT ANALYST 06/24/2025 3:55 PM QUALITY IMPROVEMENT ANALYST us ADAM Poe Jr. LAB BLOOD ORDERABLES Final Result Performing Organization Address City/State/[facility] Co de Phone Number JAZMYNIAN [address] [facility] Department of Laboratories [place], [place] [phone] * NV INJECTION 1 TENDON SHEATH/LIGAMENT APONEUROSIS (06/24/2025 1:30 PM QUALITY IMPROVEMENT ANALYST) Narrative Karen Cleveland MD - 06/24/2025 1:30 PM QUALITY IMPROVEMENT ANALYST Karen Cleveland MD 06/25/2025 8:39 AM Hand / Upper Extremity Arthrocentesis: R index A1 Performed by: Karen Cleveland MD Authorized by: Karen Cleveland MD Consent Given by: Patient Site marked: the procedure site was marked Timeout: prior to procedure the correct patient, procedure, and site was verified Verbal consent obtained?: Yes Written consent obtained?: No Indications: Pain Condition: trigger finger Location: Index finger Site: R index A1 Prep: patient was prepped and draped in usual sterile fashion Prep: patient was prepped using a clean technique Medications Right Index Injection: 1 mL lidocaine 10 mg/mL (1 %); 40 mg methylPREDNISolone acetate 40 mg/mL Patient tolerance: Patient tolerated the procedure well with no immediate complications us Karen Cleveland MD IN CLINIC/BEDSIDE ORDERAB LES Final Result * XR Hand Right 3 or More Views (06/24/2025 12:56 PM QUALITY IMPROVEMENT ANALYST) Anatomical Region Laterality Modality Upper Extremities, Hand Right Computed Radiography 06/24/2025 3:23 PM QUALITY IMPROVEMENT ANALYST Impressions 06/24/2025 3:23 PM QUALITY IMPROVEMENT ANALYST 1. No radiographic evidence of inflammatory arthritis. 2. Bilateral polyarticular hand and wrist osteoarthritis. Electronically signed by: Timmy Roblero M.D. Narrative 06/24/2025 3:23 PM QUALITY IMPROVEMENT ANALYST EXAMINATION: XR HAND LEFT 3 OR MORE VIEWS, XR HAND RIGHT 3 OR MORE VIEWS HISTORY: pain. Bilateral hand pain FINDINGS: 3 views each hand submitted without comparison. Left hand: No acute fracture. No erosions. Ulnar positive variance. Mild triscaphe and basal thumb joint osteoarthritis. 1st metacarpophalangeal and polyarticular interphalangeal joint osteoarthritis. No dorsal wrist soft tissue swelling. Right hand: No erosions. No acute fracture. Ulnar positive variance is present. Mild radiocarpal, moderate to severe triscaphe and mild basal thumb joint osteoarthritis. 1st metacarpophalangeal and polyarticular interphalangeal joint osteoarthritis. Procedure Note Timmy Roblero MD - 06/24/2025 EXAMINATION: XR HAND LEFT 3 OR MORE VIEWS, XR HAND RIGHT 3 OR MORE VIEWS HISTORY: pain. Bilateral hand pain FINDINGS: 3 views each hand submitted without comparison. Left hand: No acute fracture. No erosions. Ulnar positive variance. Mild triscaphe and basal thumb joint osteoarthritis. 1st metacarpophalangeal and polyarticular interphalangeal joint osteoarthritis. No dorsal wrist soft tissue swelling. Right hand: No erosions. No acute fracture. Ulnar positive variance is present. Mild radiocarpal, moderate to severe triscaphe and mild basal thumb joint osteoarthritis. 1st metacarpophalangeal and polyarticular interphalangeal joint osteoarthritis. IMPRESSION: 1. No radiographic evidence of inflammatory arthritis. 2. Bilateral polyarticular hand and wrist osteoarthritis. Electronically signed by: Timmy Roblero M.D. us Karen Cleveland MD IMG XR PROCEDURES Final R esult * XR Hand Left 3 or More Views (06/24/2025 12:56 PM QUALITY IMPROVEMENT ANALYST) Anatomical Region Laterality Modality Upper Extremities, Hand Left Computed Radiography 06/24/2025 3:23 PM QUALITY IMPROVEMENT ANALYST Impressions 06/24/2025 3:23 PM QUALITY IMPROVEMENT ANALYST 1. No radiographic evidence of inflammatory arthritis. 2. Bilateral polyarticular hand and wrist osteoarthritis. Electronically signed by: Timmy Roblero M.D. Narrative 06/24/2025 3:23 PM QUALITY IMPROVEMENT ANALYST EXAMINATION: XR HAND LEFT 3 OR MORE VIEWS, XR HAND RIGHT 3 OR MORE VIEWS HISTORY: pain. Bilateral hand pain FINDINGS: 3 views each hand submitted without comparison. Left hand: No acute fracture. No erosions. Ulnar positive variance. Mild triscaphe and basal thumb joint osteoarthritis. 1st metacarpophalangeal and polyarticular interphalangeal joint osteoarthritis. No dorsal wrist soft tissue swelling. Right hand: No erosions. No acute fracture. Ulnar positive variance is present. Mild radiocarpal, moderate to severe triscaphe and mild basal thumb joint osteoarthritis. 1st metacarpophalangeal and polyarticular interphalangeal joint osteoarthritis. Procedure Note Timmy Roblero MD - 06/24/2025 EXAMINATION: XR HAND LEFT 3 OR MORE VIEWS, XR HAND RIGHT 3 OR MORE VIEWS HISTORY: pain. Bilateral hand pain FINDINGS: 3 views each hand submitted without comparison. Left hand: No acute fracture. No erosions. Ulnar positive variance. Mild triscaphe and basal thumb joint osteoarthritis. 1st metacarpophalangeal and polyarticular interphalangeal joint osteoarthritis. No dorsal wrist soft tissue swelling. Right hand: No erosions. No acute fracture. Ulnar positive variance is present. Mild radiocarpal, moderate to severe triscaphe and mild basal thumb joint osteoarthritis. 1st metacarpophalangeal and polyarticular interphalangeal joint osteoarthritis. IMPRESSION: 1. No radiographic evidence of inflammatory arthritis. 2. Bilateral polyarticular hand and wrist osteoarthritis. Electronically signed by: Timmy Roblero M.D. us Karen Cleveland MD IMG XR PROCEDURES Final R esult * (ABNORMAL) Hemoglobin A1c (05/13/2025 4:55 PM CDT) Hgb A1C 7.5(H) 4.0 - 5.6 % Comment:Testing performed by : [facility], [address] [place] [address]., [id number] Estimated Average Glucose 169 mg/dL HARISH MORRIS Comment: The ADA recommends reporting an estimated Average Glucose (eAG) with all Hemoglobin A1c results using the equation derived from a study of 507 normal and diabetic adults. Minority populations were underrepresented and children were not included. (Diabetes Care 31:5823-2773, 2008). The eAG is not equivalent to a fasting glucose. Testing performed by: [facility], [address] [place] [address]., [id number] Blood 05/13/2025 4:55 PM CDT 05/13/2025 4:57 PM CDT us ADAM Poe Jr. LAB BLOOD ORDERABLES Final Result Performing Organization Address City/State/[facility] Co de Phone Number HARISH 2011 [facility] Department [place] [address] * CT Cervical Spine WO Contrast (04/09/2025 4:14 PM CDT) Anatomical Region Laterality Modality Spine N/A Computed Tomogra phy 04/09/2025 5:53 PM CDT Narrative 04/09/2025 5:57 PM CDT EXAM DESCRIPTION: CT CERVICAL SPINE WO CONTRAST REASON FOR STUDY: Neck pain after fall. TECHNIQUE: Axial images through the cervical spine with sagittal and coronal reformatted images. Automated exposure control was used as a dose optimization technique for this examination. COMPARISON: None FINDINGS: ALIGNMENT: Normal. VERTEBRAE: No fracture. Mild to moderate diffuse cervical spondylosis. No perched or jumped facets. No perched or jumped facets. Normal C1-2 articulation. The occipital condyles are intact. DISCS: Disc heights well-maintained. HARDWARE: None in the spine. INDIVIDUAL DISC LEVELS: No significant osseous spinal canal or neural foraminal stenosis. UPPER THORACIC: Incompletely imaged. No significant osseous spinal stenosis or osseous neural foraminal stenosis. SKULL BASE: No significant finding. LUNG APICES: No significant abnormality. NECK SOFT TISSUES: No significant abnormality. OTHER: No other significant findings. IMPRESSION: 1. No acute fracture of the cervical spine. 2. Mild to moderate cervical spondylosis. THIS IS AN ELECTRONICALLY VERIFIED FINAL REPORT 04/09/2025 5:57 PM - Electronically signed by Shahram Patino M.D. LB: JOSÉ MIGUEL Report ID: [id number] Reading Location: [id number] Procedure Note Shahram Patino MD - 04/09/2025 EXAM DESCRIPTION: CT CERVICAL SPINE WO CONTRAST REASON FOR STUDY: Neck pain after fall. TECHNIQUE: Axial images through the cervical spine with sagittal andcoronal reformatted images. Automated exposure control was used as a doseoptimization technique for this examination. COMPARISON: None FINDINGS: ALIGNMENT: Normal. VERTEBRAE: No fracture. Mild to moderate diffuse cervical spondylosis.No perched or jumped facets. No perched or jumped facets. Normal C1-2 articulation. The occipital condyles are intact. DISCS: Disc heights well-maintained. HARDWARE: None in the spine. INDIVIDUAL DISC LEVELS: No significant osseous spinal canal or neural foraminal stenosis. UPPER THORACIC: Incompletely imaged. No significant osseous spinalstenosis or osseous neural foraminal stenosis. SKULL BASE: No significant finding. LUNG APICES: No significant abnormality. NECK SOFT TISSUES: No significant abnormality. OTHER: No other significant findings. IMPRESSION: 1. No acute fracture of the cervical spine. 2. Mild to moderate cervical spondylosis. THIS IS AN ELECTRONICALLY VERIFIED FINAL REPORT 04/09/2025 5:57 PM - Electronically signed by Shahram Patino M.D. LB: JOSÉ MIGUEL Report ID: [id number] Reading Location: [id number] Tracie MEDINA IMG CT PROCEDURES Pamela l Result * CT Facial Bones WO Contrast (04/09/2025 4:14 PM CDT) Anatomical Region Laterality Modality Head and Neck N/A Computed Tomogra phy 04/09/2025 5:46 PM CDT Narrative 04/09/2025 5:53 PM CDT EXAM DESCRIPTION: CT FACIAL BONES WO CONTRAST REASON FOR STUDY: Left facial pain after fall out of bed on Saturday. Bruising around left eye. TECHNIQUE: Noncontrast computed tomography images through the paranasal sinuses. Reconstructed MPR images reviewed. All images stored on PACS. Automated exposure control was used as a dose optimization technique for this examination. COMPARISON: MRI brain 12/16/2021 FINDINGS: BONES: No fracture or bone lesion. SOFT TISSUES: No abscess. No inflammatory changes. SINUSES: Retention cyst or polyp within the right maxillary sinus. NASAL CAVITY: Midline nasal septum. ORBITS: No significant abnormalities visualized. TMJ: Normal. MASTOIDS: Well-aerated. IACs symmetric, grossly normal. BRAIN: Limited view. No acute findings. OTHER: No other significant finding. IMPRESSION: 1. No acute fracture of the maxillofacial bones. THIS IS AN ELECTRONICALLY VERIFIED FINAL REPORT 04/09/2025 5:53 PM - Electronically signed by Shahram Patino M.D. LB: JOSÉ MIGUEL Report ID: [id number] Reading Location: [id number] Procedure Note Shahram Patino MD - 04/09/2025 EXAM DESCRIPTION: CT FACIAL BONES WO CONTRAST REASON FOR STUDY: Left facial pain after fall out of bed on Saturday. Bruising around left eye. TECHNIQUE: Noncontrast computed tomography images through the paranasal sinuses. Reconstructed MPR images reviewed. All images stored on PACS. Automated exposure control was used as a dose optimization technique forthis examination. COMPARISON: MRI brain 12/16/2021 FINDINGS: BONES: No fracture or bone lesion. SOFT TISSUES: No abscess. No inflammatory changes. SINUSES: Retention cyst or polyp within the right maxillary sinus. NASAL CAVITY: Midline nasal septum. ORBITS: No significant abnormalities visualized. TMJ: Normal. MASTOIDS: Well-aerated. IACs symmetric, grossly normal. BRAIN: Limited view. No acute findings. OTHER: No other significant finding. IMPRESSION: 1. No acute fracture of the maxillofacial bones. THIS IS AN ELECTRONICALLY VERIFIED FINAL REPORT 04/09/2025 5:53 PM - Electronically signed by Shahram VALDEZ: JOSÉ MIGUEL Report ID: [id number] Reading Location: [id number] Tracie Carbone ADAM IMG CT PROCEDURES Pamela l Result * CT Head WO Contrast (04/09/2025 4:14 PM CDT) Anatomical Region Laterality Modality Head and Neck N/A Computed Tomogra phy 04/09/2025 5:57 PM CDT Narrative 04/09/2025 6:01 PM CDT EXAM DESCRIPTION: CT HEAD WO CONTRAST REASON FOR STUDY: Left-sided head pain after fall out of bed. Bruising around left eye. TECHNIQUE: Axial images acquired through the brain without intravenous contrast. Images stored on PACS. Automated exposure control was used as a dose optimization technique for this examination. COMPARISON: MRI brain 12/16/2021 FINDINGS: BRAIN: No hemorrhage, edema or mass effect. Minimal amount of periventricular white matter hypoattenuation is nonspecific but most consistent with chronic small vessel ischemic disease. The pereira-white matter differentiation is diffusely preserved. Basilar cisterns are patent. Cavum septum pellucidum et vergae is incidentally noted. EXTRA-AXIAL SPACES: No fluid collections. No masses. CALVARIUM: No fracture. SINUSES/MASTOIDS: Retention cyst or polyp within the right maxillary sinus. ORBITS: No significant abnormality. OTHER: The skull base, craniocervical junction, and extracranial soft tissues are unremarkable. IMPRESSION: 1. No acute intracranial abnormality by CT criteria. THIS IS AN ELECTRONICALLY VERIFIED FINAL REPORT 04/09/2025 6:01 PM - Electronically signed by Shahram Patino M.D. LB: JOSÉ MIGUEL Report ID: [id number] Reading Location: [id number] Procedure Note Shahram Patino MD - 04/09/2025 EXAM DESCRIPTION: CT HEAD WO CONTRAST REASON FOR STUDY: Left-sided head pain after fall out of bed. Bruisingaround left eye. TECHNIQUE: Axial images acquired through the brain without intravenous contrast. Images stored on PACS. Automated exposure control was used asa dose optimization technique for this examination. COMPARISON: MRI brain 12/16/2021 FINDINGS: BRAIN: No hemorrhage, edema or mass effect. Minimal amountof periventricular white matter hypoattenuation is nonspecific but most consistent with chronic small vessel ischemic disease. The pereira-whitematter differentiation is diffusely preserved. Basilar cisterns are patent.Cavum septum pellucidum et vergae is incidentally noted. EXTRA-AXIAL SPACES: No fluid collections. No masses. CALVARIUM: No fracture. SINUSES/MASTOIDS: Retention cyst or polyp within the right maxillarysinus. ORBITS: No significant abnormality. OTHER: The skull base, craniocervical junction, and extracranial soft tissues are unremarkable. IMPRESSION: 1. No acute intracranial abnormality by CT criteria. THIS IS AN ELECTRONICALLY VERIFIED FINAL REPORT 04/09/2025 6:01 PM - Electronically signed by Shahram Patino M.D. LB: JOSÉ MIGUEL Report ID: [id number] Reading Location: [place] [address] PROCEDURES Pamela l Result * POCT glucose (04/09/2025 3:38 PM CDT) [facility] Signature Glucose, POC 141 70 - 199 mg/dL Comment:Testing performed by : [facility], [address] [place] [address]., [id number] Blood 04/09/2025 3:38 PM CDT 04/09/2025 3:38 PM CDT us Notinfile Unknown LAB POCT ORDERABLES - DEVICE F inal Result HARISH [address] [facility] Department [place] [address] * Diabetic Eye Exam (03/29/2025 11:01 AM CDT) Historical Provider HEALTH MAINTENANCE Final Result * Albumin Creatinine Ratio, Urine (02/11/2025 10:27 AM CDT) Albumin Ur <12.0 mg/L Comment: Interpretive Data No reference range established. Current interpretive data was last revised 2018. Testing performed by: [address] [address] Creatinine Ur 136.0 mg/dL HARISH Comment: Interpretive Data No reference range established. Current interpretive data was last revised 2018. Testing performed by: [address] [address] Albumin Creatinine Ratio, Ur <9 1 - 29 mg/g HARISH Comment:Testing performed by : [facility], [address] [place] [address]., [address] Urine 02/11/2025 10:2 7 AM CDT 02/11/2025 11:44 AM CDT ADAM Poe Jr. LAB URINE ORDERABLES Final Result HARISH [address] [facility] Department [place] [address] * eGFR (02/06/2025 11:37 AM CDT) eGFR >90 >=60 mL/min/1. 73 m2 Comment: Interpretive Data Reference Interval Normal >/= 90 mL/min/1.73m2 Mildly decreased* 60 - 89 mL/min/1.73m2 Mildly to moderately decreased 45 - 59 mL/min/1.73m2 Moderately to severely decreased 30 - 44 mL/min/1.73m2 Severely decreased 15 - 29 mL/min/1.73m2 Kidney Failure < 15 mL/min/1.73m2 *Relative to young adult level Estimated glomerular filtration rate is determined by the 2020 CKD-EPI equation recommended by the National Kidney Foundation (A Unifying Approach to GFR Estimation: Recommendations of the NKF-ASK Task Force on Reassessing the Inclusion of Race in Diagnosing Kidney Disease, JASN 2020). The CKD-EPI equation should not be used for patients with unstable renal function and has not been validated in children and those over 70. Current interpretive data was last reviewed 2021. Testing performed by: [facility], [address] [place] [address]., [id number] Blood 02/06/2025 11:3 7 AM CDT 02/06/2025 12:27 PM CDT us Juventino El MD LAB BLOOD ORDERABLES Final Result [facility] [address] [facility] Department [place] [address] * (ABNORMAL) Lipid panel (02/06/2025 11:37 AM CDT) Cholesterol 175 30 - 199 mg/dL Comment: Interpretive Data Ages < or = 19 years Acceptable: <170 mg/dL Borderline high: 170-199 mg/dL High: >or= 200 mg/dL Ages > or = 20 years Desirable: <200 mg/dL Borderline high: 200-239 mg/dL High: >or= 240 mg/dL Literature References: 1. Expert Panel on Integrated Guidelines for Cardiovascular Health and Risk Reduction in Children and Adolescents. Pediatrics 2011;128:S213 2. NCEP Expert Panel. Circulation 2004;110:227 Current Interpretive Data was last revised on 2018. Testing performed by: [facility], [address] [place] [address]., [address] Triglycerides 174(H) <=149 mg/dL HARISH Comment: Interpretive Data Ages < or = 9 years Acceptable: <75 mg/dL Borderline high: 75-99 mg/dL High: >or= 100 mg/dL Ages 10 to 20 years Acceptable: <90 mg/dL Borderline high: 90-129 mg/dL High: >or= 130 mg/dL Ages > or = 20 years Desirable: <150 mg/dL Borderline high: 150-199 mg/dL High: 200-499 mg/dL Very high: >or= 499 mg/dL Literature References: 1. Expert Panel on Integrated Guidelines for Cardiovascular Health and Risk Reduction in Children and Adolescents. Pediatrics 2011;128:S213 2. NCEP Expert Panel. Circulation 2004;110:227 Current Interpretive Data was last revised on 2018. Testing performed by: [address] [address] HDL 42 >=40 mg/dL HARISH Comment: Interpretive Data Ages < or = 19 years Acceptable: >45 mg/dL Borderline low: 40-45 mg/dL Low: <40 mg/dL Ages > or = 20 years Desirable: >or= 60 mg/dL Low: <40 mg/dL Literature References: 1. Expert Panel on Integrated Guidelines for Cardiovascular Health and Risk Reduction in Children and Adolescents. Pediatrics 2011;128:S213 2. NCEP Expert Panel. Circulation 2004;110:227 Current Interpretive Data was last revised on 2018. Testing performed by: [address] [address] LDL, calculated 103 <=129 mg/dL HARISH Comment: Interpretive Data Ages < or = 19 years Acceptable: <110 mg/dL Borderline high: 110-129 mg/dL High: >or= 130 mg/dL Ages > or = 20 years Optimal: <100 mg/dL Near optimal: 100-129 mg/dL Borderline high: 130-159 mg/dL High: >160 mg/dL Calculated using the Bill LDL-C estimating equation. This equation was implemented on 2024. Prior to this date LDL-C was estimated using the Friedewald equation. Literature References: 1. Expert Panel on Integrated Guidelines for Cardiovascular Health and Risk Reduction in Children and Adolescents. Pediatrics 2011;128:S213 2. NCEP Expert Panel. Circulation 2004;110:227 3. Bill Machuca et al. YAMILE Cardiol. 2020 December 17;5(5):540-548. doi: 10.1001/jamacardio.2020.0013 Current Interpretive Data was last revised on 2024. Testing performed by: [address] [address] Non-HDL Cholesterol 133 mg/dL HARISH Comment: Interpretive Data Ages < or = 19 years Acceptable: <120 mg/dL Borderline high: 120-144 mg/dL High: >145 mg/dL Ages > or = 20 years When triglycerides are >200 mg/dL, Non-HDL cholesterol is a secondary target of therapy with treatment goals that are 30 mg/dL greater than the LDL cholesterol target. Literature References: 1. Expert Panel on Integrated Guidelines for Cardiovascular Health and Risk Reduction in Children and Adolescents. Pediatrics 2011;128:S213 2. NCEP Expert Panel. Circulation 2004;110:227 Current Interpretive Data was last revised on 2018. Testing performed by: [facility], [address] [place] [address]., [address] Chol/HDL ratio 4 HARISH MORRIS Comment:Testing performed by : [facility], [address] [place] [address]., [address] Blood 02/06/2025 11:3 7 AM CDT 02/06/2025 12:27 PM CDT us Juventino El MD LAB BLOOD ORDERABLES Final Result HARISH [address] [facility] Department [place] [address] * Screening Mammogram Bilateral W Renaldo (01/26/2025 7:30 AM CDT) Anatomical Region Laterality Modality Breast Bilateral Mammography Impressions 01/26/2025 9:40 AM CDT BI-RADS ATLAS category (overall): 1 - Negative There is no mammographic evidence of malignancy. A 1 year screening mammogram is recommended. The patient has been or will be contacted. We recommend annual screening mammography for women at average risk of breast cancer beginning at age 40, based on guidelines of the [employer] (ACR Practice Parameter for the Performance of Screening and Diagnostic Mammography) and [employer]. For women with and elevated risk of breast cancer, please refer to the ACR Practice Parameter for specific screening recommendations. The patient will be entered into a reminder system with a target due date of 1 year for her next screening exam. Narrative 01/26/2025 9:40 AM CDT Screening Mammogram Bilateral W Renaldo: 01/26/25 The study was acquired using full field digital technology and interpreted from soft copy. 2D digital mammographic views, as well as 3D digital tomosynthesis were performed in the CC and MLO projections. CLINICAL: Screening mammogram, encounter for. No relevant medical history has been documented for this patient. History of breast cancer in Mother, Father's Sister. COMPARISONS: 02/11/2024 Screening Mammogram Bilateral W Renaldo 01/29/2023 Screening Mammogram Bilateral W Renaldo 03/24/2022 Screening Mammogram Bilateral W Renaldo 03/13/2021 Screening Mammogram Bilateral W Renaldo BREAST TISSUE: There are scattered areas of fibroglandular density. FINDINGS: No suspicious masses, suspicious calcifications, or other suspicious findings are seen within either breast. There has been no suspicious change. us Oracio Anthony NP IMG MAMMO PROCEDURES Fin al Result * Colonoscopy (12/25/2024 1:32 PM CDT) Anatomical Region Laterality Modality Other Narrative Procedure Note Dariusz Acosta MD - 12/25/2024 1:32 PM CDT [facility] GI ENDOSCOPY Patient Name: Kimberly Duke Procedure Date: 12/25/2024 1:32 PM Date of : 1965 Admit Type: Outpatient Age: 59 Gender: Female Attending MD: Dariusz Acosta M.D. Room: [facility] ENDOSCOPY ROOM 06 Note Status: Finalized Procedure: Colonoscopy Indications: Rectal bleeding, average risk Referring MD: Providers: Dariusz Acosta M.D. Medicines: See the Anesthesia note for documentation of the administered medications Complications: No immediate complications. Estimated Blood Loss: Estimated blood loss was minimal. Procedure: Pre-Anesthesia Assessment: - Prior to the procedure, a History and Physicalwas performed, and patient medications and allergieswere reviewed. The risks and benefits of the procedureand the sedation options and risks were discussed withthe patient. All questions were answered and informed consent was obtained. Patient identification and proposed procedure were verified. After reviewingthe risks and benefits, the patient was deemed in satisfactory condition to undergo the procedure.The anesthesia plan was to use monitored anesthesiacare (MAC). Immediately prior to administration of medications, the patient was re-assessed foradequacy to receive sedatives. The heart rate, respiratory rate, oxygen saturations, blood pressure, adequacyof pulmonary ventilation, and response to care were monitored throughout the procedure. The physical status of the patient was re-assessed after the procedure. The benefits, risks and alternatives of theprocedure and sedation were discussed and informed consentwas obtained. All questions were answered. Please referto the signed informed consent document in the medical record. The scope was passed under direct vision.The CF-SP124B colonoscope was introduced through theanus and advanced to the terminal ileum, with identification of the appendiceal orifice and IC valve. The colonoscopy was performed without difficulty. The patient tolerated the procedurewell. The quality of the bowel preparation was good.Scope withdrawal time was 14 minutes. Prep wasadministered in a split dose. Findings: The perianal and digital rectal examinations were normal. The visualized terminal ileum appeared normal. Two sessile polyps were found in the cecum. The polyps were 5 - 6 mmin size. These polyps were removed with a cold snare. Resection and retrieval were complete. Three sessile polyps were found in the transverse colon. The polypswere 5 - 6 mm in size. These polyps were removed with a cold snare.Resection and retrieval were complete. Mild sigmoid colon diverticulosis. Small internal hemorrhoids. Impression: - The examined portion of the terminal ileum was normal. - Two 5 - 6 mm polyps in the cecum, removed with a cold snare. Resected and retrieved. - Three 5 - 6 mm polyps in the transverse colon, removed with a cold snare. Resected andretrieved. - Diverticulosis. - Hemorrhoids. Recommendation: - Await pathology results. - Resume previous diet today. - Discharge patient to home. - Rectal bleeding likely due to hemorrhoids -increase fiber, hydration, avoid from straining. - Patient has a contact number available for emergencies. The signs and symptoms of potential delayed complications were discussed with thepatient. Return to normal activities tomorrow. Written discharge instructions were provided to thepatient. - I would be happy to see you in my GI clinic ifyou have further questions or concerns or if symptoms progress Dariusz Acosta M.D. 12/25/2024 2:29:03 PM Number of Addenda: 0 Note Initiated On: 12/25/2024 1:32 PM Recognized by the [place] [employer] for promoting quality in endoscopy Dariusz Acosta MD ENDOSCOPY PROCEDURES Pamela l Result * High Risk HPV DNA Detection with Genotyping (Molecular component) (10/20/2024 12:30 PM QUALITY IMPROVEMENT ANALYST) HPV HR 16 Not Detected Not Detected HPV HR 18 Not Detected Not Detected [facility] HPV HR Non 16/18 Not Detected Not Detected [facility] Comment: Interpretive Data Nucleic acid amplification for detection of high-risk Human Papilloma virus (HPV) is performed by the Mery Sherry 4800 HPV test, which specifically detects high-risk HPV-16, 18, 31, 33, 35, 39, 45, 51, 52, 56, 58, 59, 66, and 68 genotypes. This assay has been approved by the [place] Food and Drug Administration for detection of HPV in cervical specimens collected by a physician using an endocervical brush/spatula or cervical broom and placed in the ThinPrep Pap Test PreservCyt collection containers. The performance characteristics of this test have been verified by the [facility]. Correlate with separately reported cytology results, as applicable. Interpretive data last revised 23 Endocervical 10/20/2024 12:3 0 PM QUALITY IMPROVEMENT ANALYST 10/20/2024 8:44 PM QUALITY IMPROVEMENT ANALYST Narrative [facility] - 10/22/2024 12:54 AM QUALITY IMPROVEMENT ANALYST Clinical history and diagnosis->wwe Number of vials->1 Testing type->Screening Last menstrual period (date if known)->postmenopausal Oracio Anthony NP LAB BODY FLUIDS AND STOO LS ORDERABLES Final Result [facility] [address] Department [place] [address] * Hepatitis panel, acute (12/26/2021 1:11 PM CDT) Hep A IgM Nonreactive Nonreactive [facility] Comment: Interpretive Data: If Hep A IgM Ab is reported as Equivocal, a new sample should be drawn in two weeks for testing. Current interpretive data was last revised on 19. Hep B core IgM Nonreactive Nonreactive [facility] Comment: Interpretive Data If HepB Core IgM Ab is reported as Equivocal, a new sample should be drawn in two weeks for testing. Current interpretive data was last revised on 19. Hep C Ab Nonreactive Nonreactive [facility] Comment: Interpretive Data Nonreactive: Antibodies to HCV not detected. Does NOT exclude the possibility of recent exposure to HCV. Equivocal: Equivocal for HCV antibodies. Supplemental molecular testing will be automatically performed to determine infection status in accordance with current CDC screening recommendations. Reactive: Positive for HCV antibodies. This may represent current or past HCV infection. Supplemental molecular testing will be automatically performed to determine current infection status in accordance with current CDC screening recommendations. Interpretive data was last revised on 2019. 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
[2025-07-02 13:38] LABS: Troponin I < 0.012 ng/mL (0.000-0.034)
[2025-07-02 13:43] LABS: NT Pro B Type Natriuretic Pept 232 pg/mL (19.9-100)
--- NOTE | 2025-07-02 14:49 | ED.CHESTPAIN ---
HPI - Chest Pain General Chief Complaint: Chest Pain Stated Complaint: chest pain Time Seen by Provider: 07/02/25 12:08 Source: patient Mode of arrival: ambulatory Limitations: no limitations History of Present Illness HPI narrative: 60-year-old with a history of diabetes, hyperlipidemia presents to the ER with a complaint of chest pain with started yesterday which resolved while she was at work this morning started having pain in the left upper extremity radiating into arm. She presently denies having any pain or shortness of breath. No previous history of CAD. MD complaint: chest pain Onset (ago): day(s) (1) Timing of current episode: now resolved Prior episodes: No Pain location: left chest Pain radiation: left arm Quality: aching Relieving factors: nothing Treatment prior to arrival: none Risk Factors Coronary artery disease risk factors: diabetes and hyperlipidemia Related Data Allergies Allergy/AdvReac Type Severity Reaction Status Date / Time No Known Drug Allergies Allergy Unknown Unknown Verified 07/02/25 09:47 Review of Systems Review of Systems: All systems reviewed & are unremarkable except as noted in HPI and below ROS unobtainable: Yes unobtainable due to endotracheal tube Constitutional: Constitutional: Reports no additional constitutional complaints Eyes: Eyes: Reports no additional eye complaints ENT: Reports system reviewed and no additional complaints, except as documented Cardiovascular: Cardiovascular: Reports as per HPI Respiratory: Respiratory: Reports no additional respiratory complaints Gastrointestinal: Gastrointestinal: Reports no additional gastrointestinal complaints Genitourinary: Genitourinary: Reports no additional female genitourinary complaints Musculoskeletal: Musculoskeletal: Reports no additional musculoskeletal complaints [facility] Past Medical History Medical History (Updated 07/02/25 @ 14:53 by Pj Max MD) Diabetes mellitus Social History Social History Smoking status: Never smoker Exam Narrative: GENERAL: Well-appearing, well-nourished, and in no acute distress. HEAD: Normocephalic, atraumatic. EYES: PERRLA and EOMI. ENT: Nares clear, no rhinorrhea or epistaxis. Mucous membranes moist. NECK: Supple. CHEST: Clear to auscultation. No respiratory distress. HEART: Regular rate and rhythm. No murmur heard. Normal peripheral pulses. ABDOMEN: Soft, nontender, nondistended, normal active bowel sounds. EXTREMITIES: Normal range of motion. No edema. SKIN: Warm, dry, no rash. NEURO: No focal deficits. Alert and oriented x3. PSYCH: Normal mood and affect. Course Course Emergency Course: Patient remained pain-free while and as a in the ER. Informed her about the lab work, EKG and chest the his findings. The follow-up with primary doctor and consider outpatient stress test Vital Signs Vital signs: Vital Signs Temperature 36.8 C 07/02/25 09:55 Pulse Rate 82 07/02/25 09:55 Respiratory Rate 16 07/02/25 09:55 Blood Pressure 159/84 H 07/02/25 09:55 Pulse Oximetry 99 07/02/25 09:55 Temperature 36.5 C 07/02/25 11:33 Pulse Rate 82 07/02/25 11:33 Respiratory Rate 16 07/02/25 11:33 Blood Pressure 172/88 H 07/02/25 11:33 Pulse Oximetry 98 07/02/25 11:33 Oxygen Delivery Room Air 07/02/25 11:33 MDM - Chest Pain Differential Diagnosis Differential diagnosis: Likely unstable angina pectoris, atypical chest pain and chest pain Medical Records Data Attestation: I reviewed the patient's medical records. Lab Data Attestation: I reviewed the patient's lab results. 07/02/25 10:00 07/02/25 10:00 Labs: Lab Results 07/02/25 07/02/25 Range/Units 10:00 13:07 WBC 6.8 (4.5-10.0) K/mm3 RBC 4.19 L (4.2-5.4) M/mm3 Hgb 12.6 (12.0-15.0) g/dL Hct 37.6 (37.0-47.0) % MCV 89.7 (80-100) fl MCH 30.1 (26-34) pg MCHC 33.5 (32-36) g/dl RDW 14.1 (11.5-14.5) % Plt Count 176 (150-375) k/mm3 MPV 10.2 (7.4-10.4) fl Immature Gran % (Auto) 0.3 (0-0.5) % Neut % (Auto) 51.5 (45.5-73.1) % Lymph % (Auto) 39.0 (18.3-44.2) % [place] % (Auto) 6.8 (2.6-8.5) % Eos % (Auto) 2.1 (0-4.4) % Baso % (Auto) 0.3 (0.2-1.2) % Lymph # (Auto) 2.65 (0.9-3.2) K/mm3 [place] # (Auto) 0.5 (0.1-0.6) K/mm3 Eos # (Auto) 0.1 (0-0.3) K/mm3 Baso # (Auto) 0.0 (0.0-0.1) K/mm3 Abs Immat Gran (auto) 0.02 (0.00-0.031) K/mm3 Absolute Neuts (auto) 3.5 (1.3-6.7) K/mm3 Absolute Nucleated RBC 0.000 (0.0-0.012) K/mm3 Nucleated RBC % 0.0 (0.0-0.2) % PT 14.8 H (11.1-14.7) Seconds INR 1.2 APTT 25.9 (22.3-36.8) Seconds Sodium 139 (137-145) mmol/L Potassium 3.6 (3.4-5.0) mmol/L Chloride 101 (98-107) mmol/L Carbon Dioxide 28 (22-30) mmol/L Anion Gap 10 (4-12) mmol/L BUN 12 (7-17) mg/dL Creatinine 0.62 L (0.7-1.0) mg/dL Estim Creat Clear Calc 93 ml/min Estimated GFR > 60 (59 - ) Glucose 152 H (65-110) mg/dL Calcium 9.4 (8.4-10.2) mg/dL Total Bilirubin 0.5 (0.2-1.3) mg/dL AST 33 (14-36) U/L ALT 30 (6-35) U/L Alkaline Phosphatase 90 (38-126) U/L Troponin I < 0.012 < 0.012 (0.000-0.034) ng/mL NT-Pro-B Natriuret Pep 232 H (19.9-100) pg/mL Total Protein 8.0 (6.3-8.2) g/dL Albumin 4.3 (3.5-5.1) g/dL Lipase 177 (23-300) U/L Imaging Data Radiologist's impression: ITS Impressions Chest X-Ray 07/02/25 11:22 IMPRESSION: 1. No acute cardiopulmonary findings. ECG Data EKG #1: ECG completion date: 07/02/25 ECG completion time: 09:52 EKG Interpretation: normal rate (91), no ectopy, no ST changes, NL axis and no acute changes Discharge Plan Discharge Clinical Impression: Chest pain Qualifiers: Chest pain type: unspecified Qualified Code(s): R07.9 - Chest pain, unspecified Patient Disposition: Home Condition: Stable Instructions: Chest Pain (ED) Additional Instructions: continue home medication, follow-up with your primary doctor Patient Language: Surinamese Prescriptions: No Action famotidine [Pepcid] 20 mg tablet 20 mg PO BID Qty: 14 0RF ibuprofen [IBU] 600 mg tablet 600 mg PO QID PRN (Reason: fever or pain) Qty: 7 0RF loratadine [Claritin] 10 mg tablet 10 mg PO DAILY PRN (Reason: allergy symptoms) Qty: 10 0RF Flonase Sensimist 27.5 mcg/actuation spray,suspension 2 spray intranasal DAILY Qty: 5.9 0RF Rx Instructions: into each nostril Follow-up/Referrals: Jerod,ADAM Chong Jr. [Primary Care Provider, Unknown] Time of Disposition: 14:53 Quality HEART score for chest pain patients History: slightly suspicious ECG: normal Age: > 45 and < 65 years Risk factors: 1 or 2 risk factors Troponin: > or = to 3x normal limit Heart score: 4
== END 2025-07-02 15:18 | disposition home or self-care (01) ==
PROVIDERS: Student in an Organized Health Care Education/Training Program; Emergency Provider Family Medicine; PCP Physician Assistant
DX: R07.9 Chest pain, unspecified (principal); E11.9 Type 2 diabetes mellitus without complications; E78.5 Hyperlipidemia, unspecified
CPT/HCPCS: 36415; 71046; 80053; 83690; 83880; 84484; 85025; 85610; 85730; 93005; 99284